=== PATIENT | male | born 1955 | race Caucasian/White ===

== ENCOUNTER 2020-04-22 11:53 | Emergency (ER) | payer OTHER ==
[~2020-04-22] VITALS: Ht 180.3 cm; Wt 86.2 kg
[2020-04-22 12:31] VITALS: BP 137/62
[2020-04-22] MEDS ORDERED: KETOROLAC TROMETH 60MG/2ML VIAL IM ONE (13:00)
== END 2020-04-22 13:34 | disposition home or self-care (01) ==
LOC: ER 11:53
DX: M51.16 Intervertebral disc disorders with radiculopathy, lumbar region (principal)
CPT/HCPCS: 96372; 99283; J1885

== ENCOUNTER 2021-12-30 15:32 | Emergency (ER) | payer MEDICARE, OTHER ==
[~2021-12-30] VITALS: Ht 180.3 cm; Wt 95.3 kg
[2021-12-30] MEDS ORDERED: SODIUM CHLORIDE 0.9% 2,850 ML IV ONE (16:00)
[2021-12-30 16:36] LABS: Albumin 3.6 g/dL (3.4-5.0); Anion Gap 10 (5-15); Blood Urea Nitrogen 22 mg/dL (7-18); Calcium 9.1 mg/dL (8.5-10.1); Carbon Dioxide 25 mmol/L (21-32); Chloride 100 mmol/L (98-107); Glucose 109 mg/dL (74-106); Magnesium 2.2 mg/dL (1.6-2.6); Potassium 4.2 mmol/L (3.5-5.1); Sodium 135 mmol/L (136-145)
[2021-12-30 16:37] LABS: Basophils # (auto) 0 10 ^3/uL (0-0.2); Basophils % (auto) 0.3 % (0.0-2.0); Eosinophils # (auto) 0 10 ^3/uL (0-0.8); Hematocrit 34.9 % (41.0-53.0); Hemoglobin 11.6 g/dL (13.5-17.5); INR 1.02 (0.9-1.15); Lactic Acid w/Reflex 2.1 mmol/L (0.4-2.0); Lymphocytes # (auto) 0.4 10 ^3/uL (0.4-5.4); Lymphocytes % (auto) 2.3 % (10.0-50.0); Mean Corpuscular Hemoglobin 27.9 pg (28.0-32.0); Mean Corpuscular Hgb Conc. 33.2 g/dL (32.0-36.0); Mean Corpuscular Volume 84.1 fL (80.0-100.0); Monocytes # (auto) 1.4 10 ^3/uL (0-1.3); Neutrophils # (auto) 13.4 10 ^3/uL (1.6-8.6); Neutrophils % (auto) 88.4 % (37.0-80.0); Partial Thromboplastin Time 25.4 sec (23.6-33.0); Red Blood Cells 4.15 10^6/uL (4.5-5.90); Red Cell Distribution Width 13.8 % (11.8-14.3); White Blood Cell 15.1 10^3/uL (4.4-10.8)
[2021-12-30 16:40] LABS: Alanine Aminotransferase 26 U/L (16-61); Alkaline Phosphatase 57 U/L (45-117); Aspartate Aminotransferase 33 U/L (15-37); Bilirubin, Total 0.5 mg/dL (0.2-1.0); GFR African American 78 mL/min; GFR Non-African American 64 mL/min; Total Protein 7.2 g/dL (6.4-8.2)
[2021-12-30 16:50] LABS: BUN/Creatinine Ratio 18.3
[2021-12-30] MEDS ORDERED: cefTRIAXone 1GM/50ML D5W 50 ML IV ONE (17:00)
[2021-12-30 17:39] LABS: Urine Bacteria NONE SEEN /hpf (None Seen); Urine Blood Negative /uL (Negative); Urine Mucus FEW (None Seen); Urine Specific Gravity 1.009 (1.001-1.035); Urine WBC <1 /hpf (0 - 3)
[2021-12-30] MEDS ORDERED: CLINDAMYCIN 300MG IV 50 ML IV ONE (17:45)
[2021-12-30 18:55] VITALS: BP 98/47
== END 2021-12-30 19:04 | disposition left against medical advice (07) ==
LOC: ER 15:32
DX: A41.9 Sepsis, unspecified organism (principal); M87.9 Osteonecrosis, unspecified; S76.912A Strain of unspecified muscles, fascia and tendons at thigh level, left thigh, initial encounter; X58.XXXA Exposure to other specified factors, initial encounter; I10 Essential (primary) hypertension; Z88.0 Allergy status to penicillin; Z88.1 Allergy status to other antibiotic agents; Y93.89 Activity, other specified; Y92.89 Other specified places as the place of occurrence of the external cause; Y99.8 Other external cause status
CPT/HCPCS: 36415; 71045; 73700; 80053; 81001; 83605; 83735; 84484; 85025; 85610; 85730; 87040; 93005; 96361; 96365; 96368; 99285; J0696; J3490; J7030

== ENCOUNTER 2025-03-14 08:37 | Inpatient (IN) | payer BC, MEDICARE ==
[~2025-03-14] VITALS: Ht 180.3 cm; Wt 80.0 kg
--- NOTE | 2025-03-14 09:04 | ED.PDOC ---
General HPI Comments This is a 70 year old male BIBA presenting to the ED with chief complaint of hematuria and inability to void. Patient reports that he has history of bladder cancer and he is currently following up with urology and oncology or treatment. Patient relays that he started to experience hematuria yesterday, however, soon after he was then unable to void and has not voided since onset. Patient states his abdomen is now distended due to all the fluid. Patient notes he went to [place] earlier, but was transferred here for treatment. Patient denies any dysuria, fever, chills, chest pain, SOB, or N/V/D. Chief Complaint: Urinary Time Seen by MD: 08:57 Reviewed notes: Nurses Notes, Aircraft Maintenance Engineer Notes, Medications, Allergies Allergies: Coded Allergies: Penicillins (Verified Allergy, Unknown, 12/30/21) Salicylates (Verified Allergy, Unknown, 12/30/21) Information Source: Patient, Emergency Med Personnel Mode of Arrival: EMS Severity: Moderate Inability to void: Complete Timing: Days Duration: Since onset Prehospital treatment: None Onset: Spontaneous Symptoms: Hematuria, Inability to void History of: Other (Bladder cancer) Location: Suprapubic Penile discharge: None Modifying factors: None associated signs and symptoms: Hematuria, Inability to Void Past Medical History PAST MEDICAL HISTORY: Cancer (Bladder cancer), HTN Surgical History: Denies all surgeries Family History Family History: Reviewed,noncontributory to illness Social History Smoker: Non-Smoker Alcohol: Denies ETOH Use Drugs: Denies Drug Use Lives In: Home Constitutional: denies: chills, diaphoresis, fatigue, fever, malaise, sweats, weakness, others EENTM: denies: blurred vision, double vision, ear bleeding, ear discharge, ear drainage, ear pain, ear ringing, eye pain, eye redness, hearing loss, mouth pain, mouth swelling, nasal discharge, nose bleeding, nose congestion, nose pain, photophobia, tearing, throat pain, throat swelling, voice changes, others Respiratory: denies: cough, hemoptysis, orthopnea, SOB at rest, shortness of breath, SOB with excertion, stridor, wheezing, others Cardiovascular: denies: chest pain, dizzy spells, diaphoresis, Dyspnea on exertion, edema, irregular heart beat, left arm pain, lightheadedness, palpitati ons, PND, syncope, others Gastrointestinal: reports: abdomen distended; denies: abdominal pain, blood streaked bowels, constipated, diarrhea, dysphagia, difficulty swallowing, hematemesis, melena, nausea, poor appetite, poor fluid intake, rectal bleeding, rectal pain, vomiting, others Genitourinary: reports: hematuria, others (Inability to void); denies: burning, dysuria, flank pain, frequency, incontinence, penile discharge, penile sore, pain, testicle pain, testicle swelling, urgency Neurological: denies: dizziness, fainting, headache, left sided numbness, left sided weakness, numbness, paresthesia, pre-existing deficit, right sided numbness, right sided weakness, seizure, speech problems, tingling, tremors, weakness, others Musculoskeletal: denies: back pain, gout, joint pain, joint swelling, muscle pain, muscle stiffness, neck pain, others Integumetry: denies: bruises, change in color, change in hair/nails, dryness, laceration, lesions, lumps, rash, wounds, others Allergic/Immunocompromised: denies: Difficulty Healing, Frequent Infections, Hives, Itching, others Hematologic/Lymphatic: denies: anemia, blood clots, easy bleeding, easy bruising, swollen glands, others Endocrine: denies: excessive hunger, excessive sweating, excessive thirst, excessive urination, flushing, intolerance to cold, intolerance to heat, unexplained weight gain, unexplained weight loss, others Psychiatric: denies: anxiety, bipolar disorder, depression, hopeless, panic disorder, schizophrenia, sleepless, suicidal, others All Other Systems: Reviewed and Negative Physical Exam General Appearance: No Apparent Distress, Normal HEENT: Normal ENT Inspection, Pharynx Normal, TMs Normal Neck: Full Range of Motion, Non-Tender, Normal, Normal Inspection Respiratory: Chest Non-Tender, Lungs Clear, No Accessory Muscle Use, No Respiratory Distress, Normal Breath Sounds Cardiovascular: No Edema, No JVD, No Murmur, No Gallop, Normal Peripheral Pulses, Regular Rate/Rhythm Breast Exam: Deferred Gastrointestinal: Distended, No Organomegaly, Non Tender, No Pulsatile Mass, Normal Bowel Sounds, Soft Genitalia: Deferred Pelvic: Deferred Rectal: Deferred Extremities: No calf tenderness, Normal capillary refill, Normal inspection, Normal range of motion, Non-tender, No pedal edema Musculoskeletal : Apperance: Normal Neurologic: Alert, shuttle buggy operator II-XII nml as Tested, No Motor Deficits, Normal Affect, Normal Mood, No Sensory Deficits Cerebellar Function: Normal Reflexes: Normal Skin: Dry, Normal Color, Warm Lymphatic: No Adenopathy Was a procedure done? Was a procedure done?: No Differential Diagnosis Kidney stone (Female): N/A Kidney stone (Male): N/A Penile/Scrotal: N/A Urinary Problem (Male): Urinary Retention Urinary Problem (Female): N/A X-Ray, Labs, Meds, VS Vital Signs Date Time Temp Pulse Resp B/P (MAP) Pulse Ox O2 Delivery O2 Flow Rate FiO2 03/14/25 10:01 98.6 69 14 117/60 (79) 95 98.6 03/14/25 10:01 69 20 95 Room Air* 0 21 03/14/25 09:48 97.9 68 16 127/53 (77) 96 97.9 03/14/25 08:50 97.8 70 14 132/101 (111) 91 97.8 Lab Test 03/14/25 09:32 03/14/25 09:24 Range/Units Urine Color Red H Yellow Urine Clarity Ex.turbid Clear Urine pH 5.5 5.0-9.0 Urine Specific [place] 1.013 1.001-1.035 Urine Protein 1+ H Negative Urine Ketones Negative Negative Urine Blood 3+ H Negative /uL Urine Nitrite Negative Negative Urine Bilirubin Negative Negative Urine Urobilinogen Normal Negative mg/dL Urine Leukocyte Esterase 3+ Negative /uL Urine RBC 6219 0 - 3 /hpf Urine Microscopic WBC 827 H 0-3 /HPF Urine Squamous Epithelial Cells None seen <5 /hpf Urine Bacteria None seen None Seen /hpf Urine Mucus Few None Seen Urine Glucose Normal Normal mg/dL White Blood Count 7.5 4.4-10.8 10^3/uL Red Blood Count 4.82 4.5-5.90 10^6/uL Hemoglobin 12.4 L 13.5-17.5 g/dL Hematocrit 38.3 L 41.0-53.0 % Mean Corpuscular Volume 79.4 L 80.0-100.0 fL Mean Corpuscular Hemoglobin 25.7 L 28.0-32.0 pg Mean Corpuscular Hemoglobin Concent 32.4 32.0-36.0 g/dL Red Cell Distribution Width 15.3 H 11.8-14.3 % Platelet Count 213 140-450 10^3/uL Mean Platelet Volume 7.4 6.9-10.8 fL Neutrophils (%) (Auto) 74.2 37.0-80.0 % Lymphocytes (%) (Auto) 10.8 10.0-50.0 % Monocytes (%) (Auto) 14.1 H 0.0-12.0 % Eosinophils (%) (Auto) 0.3 0.0-7.0 % Basophils (%) (Auto) 0.6 0.0-2.0 % Neutrophils # (Auto) 5.5 1.6-8.6 10 ^3/uL Lymphocytes # (Auto) 0.8 0.4-5.4 10 ^3/uL Monocytes # (Auto) 1.0 0-1.3 10 ^3/uL Eosinophils # (Auto) 0 0-0.8 10 ^3/uL Basophils # (Auto) 0 0-0.2 10 ^3/uL Nucleated Red Blood Cells 0.1 % Sodium Level 140 136-145 mmol/L Potassium Level 4.7 3.5-5.1 mmol/L Chloride Level 105 98-107 mmol/L Carbon Dioxide Level 26 20-31 mmol/L Anion Gap 9 5-15 Blood Urea Nitrogen 15 9-23 mg/dL Creatinine 0.92 0.700-1.30 mg/dL Glomerular Filtration Rate Calc 89 >90 mL/min BUN/Creatinine Ratio 16.3 10.0-20.0 Serum Glucose 114 H 74-106 mg/dL Calcium Level 10.4 8.7-10.4 mg/dL Time of 1ST Reevaluation: 09:57 Reevaluation 1ST: Improved Patient Education/Counseling: Diagnosis, Treatment Family Education/Counseling: No Family Present Additional Information Previous visits reviewed: 12/30/21 for sepsis The following tests were ordered, and results were reviewed by me: CBC, BMP, UA Additional Information was gathered from interviewing the following independent historians: EMS I reviewed and agreed with the following test results read by other providers: None I discussed treatment and results with medical personnel and: patient Comprehensive systems review obtained and negative except for what is stated in the HPI. SEPSIS Sepsis Screen Vital Signs Date Time Temp Pulse Resp B/P (MAP) Pulse Ox O2 Delivery O2 Flow Rate FiO2 6/20/25 10:01 98.6 69 14 117/60 (79) 95 98.6 03/14/25 10:01 69 20 95 Room Air* 0 21 03/14/25 09:48 97.9 68 16 127/53 (77) 96 97.9 03/14/25 08:50 97.8 70 14 132/101 (111) 91 97.8 Laboratory Tests Test 03/14/25 09:24 White Blood Count 7.5 10^3/uL (4.4-10.8) Departure 1 Departure Time of Disposition: 10:58 (Patient presented has a transfer from outside hospital with the acute urinary retention likely secondary to hematuria clots.) Impression: Primary Impression: Hematuria Qualified Codes: R31.0 - Gross hematuria Additional Impression: Acute urinary retention Disposition: ADMITTED INPATIENT Admit to: Med Surg Condition: Serious Critical Care Note Critical Care Time?: No Stability Stability form required: No Heart Score Heart Score: Heart Score Response (Comments) Value History N/A 0 EKG N/A 0 Age N/A 0 Risk Factors N/A 0 Troponin N/A 0 Total 0 I personally scribed for JOE TORRES MD ([email or web address]) on 03/14/25 at 09:04. Electronically submitted by Kareem Li ([email or web address]). JOE TORRES MD Mar 14, 2025 09:04
[2025-03-14 09:40] LABS: Urine Bacteria None Seen /hpf (None Seen)
[2025-03-14 09:41] LABS: Basophils # (auto) 0 10 ^3/uL (0-0.2); Basophils % (auto) 0.6 % (0.0-2.0); Eosinophils # (auto) 0 10 ^3/uL (0-0.8); Eosinophils % (auto) 0.3 % (0.0-7.0); Hematocrit 38.3 % (41.0-53.0); Hemoglobin 12.4 g/dL (13.5-17.5); Lymphocytes # (auto) 0.8 10 ^3/uL (0.4-5.4); Lymphocytes % (auto) 10.8 % (10.0-50.0); Mean Corpuscular Hemoglobin 25.7 pg (28.0-32.0); Mean Corpuscular Hgb Conc. 32.4 g/dL (32.0-36.0); Mean Corpuscular Volume 79.4 fL (80.0-100.0); Monocytes % (auto) 14.1 % (0.0-12.0); Neutrophils # (auto) 5.5 10 ^3/uL (1.6-8.6); Neutrophils % (auto) 74.2 % (37.0-80.0); Nucleated Red Blood Cells % 0.1 %; Platelet Count (auto) 213 10^3/uL (140-450); Red Blood Cells 4.82 10^6/uL (4.5-5.90); Red Cell Distribution Width 15.3 % (11.8-14.3); White Blood Cell 7.5 10^3/uL (4.4-10.8)
[2025-03-14 09:49] LABS: Chloride 105 mmol/L (98-107); Potassium 4.7 mmol/L (3.5-5.1); Sodium 140 mmol/L (136-145)
[2025-03-14 09:50] LABS: Anion Gap 9 (5-15); Carbon Dioxide 26 mmol/L (20-31)
[2025-03-14 09:51] LABS: Calcium 10.4 mg/dL (8.7-10.4)
[2025-03-14 09:55] LABS: BUN/Creatinine Ratio 16.3 (10.0-20.0); Blood Urea Nitrogen 15 mg/dL (9-23)
[2025-03-14 09:56] LABS: Glucose 114 mg/dL (74-106)
[2025-03-14 10:01] VITALS: PULSE 69; RESP 20; O2SAT 95
[2025-03-14 10:27] LABS: Urine Blood 3+ /uL (Negative); Urine Clarity Ex.Turbid (Clear); Urine Color Red (Yellow); Urine Mucus FEW (None Seen); Urine Protein, UAD 1+ (Negative); Urine Specific Gravity 1.013 (1.001-1.035); Urine Squamous Epithelial Cell None Seen /hpf (<5); Urine Urobilinogen Normal (Negative); Urine WBC 827 /HPF (0-3); Urine pH 5.5 (5.0-9.0)
[2025-03-14] MEDS ORDERED: SIMV40TA18 PO (12:39)
[2025-03-14] MEDS ORDERED: LOSA-534 PO (12:39)
--- NOTE | 2025-03-14 12:41 | DVHHP2 ---
History of Present Illness Reason for Visit: Hematuria History of Present Illness James Colon is a 70-year-old male with past medical history of hypertension, COPD, bladder cancer, hernia repair, bladder scrapes, bilateral leg stents at [facility] in 2020, and left eye foreign body removal who presents to the ED with hematuri that started yesterday. Patient reports that he was showering then suddenly stated that he was bleeding when he was voiding. Patient reports that he was seen at [facility] and transferred over here for evaluation. Patient also reports that he has an established urologist in [place] as well as an established oncologist in [place]. Patient denies any chest pain, shortness of breath, fever, chills, lightheadedness, weakness, dizziness, recent trauma or injury, recent sick contacts, recent ingestion of spoiled food, recent travels, abdominal pain, nausea, vomiting, or diarrhea. Patient reports that he ambulates without any DMEs. Cardiovascular: HTN Pulmonary: COPD Past Medical History Bladder cancer Past Surgical History: Hernia Repair, Other (Bladder scrapes, bilateral leg addie nts in 2020 at [facility], and left eye foreign body removal) Family History: None Smoke: Quit ALCOHOL: none (Quit) Drugs: None Lives: with Family Domestic Violence: Neg Review of Systems Genitourinary: Hematuria Allergies: Coded Allergies: Penicillins (Verified Allergy, Unknown, 12/30/21) Salicylates (Verified Allergy, Unknown, 12/30/21) Medications Current Medications Medications Dose Ordered Sig/Catia Route Start Time Stop Time Status Last Admin Dose Admin Ondansetron HCl 4 mg Q4HP PRN IV 03/14/25 12:45 UNV Acetaminophen 650 mg Q6HP PRN PO 03/14/25 12:45 UNV Nitroglycerin 0.4 mg Q5MINP PRN SL 03/14/25 12:45 UNV Morphine Sulfate 2 mg Q30M PRN IV 03/14/25 12:45 UNV Losartan Potassium 50 mg DAILY PO 03/15/25 10:00 UNV Atorvastatin Calcium 40 mg HS PO 03/14/25 22:00 UNV Exam Vital Signs Vital Signs Date Time Temp Pulse Resp B/P (MAP) Pulse Ox O2 Delivery O2 Flow Rate FiO2 03/14/25 10:01 98.6 69 14 117/60 (79) 95 98.6 03/14/25 10:01 Room Air* 0 21 General Appearance: Alert, Oriented X3, Cooperative, No acute distress HEENT: Atraumatic, PERRLA, EOMI, Mucous membr. moist/pink Respiratory: Clear to auscultation, Normal air movement Cardiovascular: Regular rate, Normal S1, Normal S2 Abdominal: Normal bowel sounds, Soft Extremities: Normal pulses Neuro: Normal speech, Strength at 5/5 X4 ext, Normal tone, Sensation intact Psych/Mental Status: Mental status NL, Mood NL Labs/Xrays Labs Test 03/14/25 09:32 03/14/25 09:24 Range/Units Urine Color Red H Yellow Urine Clarity Ex.turbid Clear Urine pH 5.5 5.0-9.0 Urine Specific [place] 1.013 1.001-1.035 Urine Protein 1+ H Negative Urine Ketones Negative Negative Urine Blood 3+ H Negative /uL Urine Nitrite Negative Negative Urine Bilirubin Negative Negative Urine Urobilinogen Normal Negative mg/dL Urine Leukocyte Esterase 3+ Negative /uL Urine RBC 6219 0 - 3 /hpf Urine Microscopic WBC 827 H 0-3 /HPF Urine Squamous Epithelial Cells None seen <5 /hpf Urine Bacteria None seen None Seen /hpf Urine Mucus Few None Seen Urine Glucose Normal Normal mg/dL White Blood Count 7.5 4.4-10.8 10^3/uL Red Blood Count 4.82 4.5-5.90 10^6/uL Hemoglobin 12.4 L 13.5-17.5 g/dL Hematocrit 38.3 L 41.0-53.0 % Mean Corpuscular Volume 79.4 L 80.0-100.0 fL Mean Corpuscular Hemoglobin 25.7 L 28.0-32.0 pg Mean Corpuscular Hemoglobin Concent 32.4 32.0-36.0 g/dL Red Cell Distribution Width 15.3 H 11.8-14.3 % Platelet Count 213 140-450 10^3/uL Mean Platelet Volume 7.4 6.9-10.8 fL Neutrophils (%) (Auto) 74.2 37.0-80.0 % Lymphocytes (%) (Auto) 10.8 10.0-50.0 % Monocytes (%) (Auto) 14.1 H 0.0-12.0 % Eosinophils (%) (Auto) 0.3 0.0-7.0 % Basophils (%) (Auto) 0.6 0.0-2.0 % Neutrophils # (Auto) 5.5 1.6-8.6 10 ^3/uL Lymphocytes # (Auto) 0.8 0.4-5.4 10 ^3/uL Monocytes # (Auto) 1.0 0-1.3 10 ^3/uL Eosinophils # (Auto) 0 0-0.8 10 ^3/uL Basophils # (Auto) 0 0-0.2 10 ^3/uL Nucleated Red Blood Cells 0.1 % Sodium Level 140 136-145 mmol/L Potassium Level 4.7 3.5-5.1 mmol/L Chloride Level 105 98-107 mmol/L Carbon Dioxide Level 26 20-31 mmol/L Anion Gap 9 5-15 Blood Urea Nitrogen 15 9-23 mg/dL Creatinine 0.92 0.700-1.30 mg/dL Glomerular Filtration Rate Calc 89 >90 mL/min BUN/Creatinine Ratio 16.3 10.0-20.0 Serum Glucose 114 H 74-106 mg/dL Calcium Level 10.4 8.7-10.4 mg/dL Indication: UTI Technique: CT axial images of the abdomen and pelvis are obtained without contrast. Coronal and sagittal reformats were obtained. Radiation Dose Information: CTDI volume is 17.4 mGy. Dose-length product is 968.5 mGy*cm Comparison: None FINDINGS: There is limited interpretation of the abdomen and pelvis without administration of intravenous contrast. The lung bases demonstrate tiny bilateral pleural effusions. Bibasilar atelectasis. Adrenal glands, spleen pancreas unremarkable in shape. Liver capsule mildly nodular morphology. Small amount of perihepatic ascites fluid. Moderate to severe left and moderate right hydroureteronephrosis. Stomach is partially distended. Small bowel loops are normal in caliber. Colonic diverticular disease. Moderate volume stool in the colon. No secondary signs for appendicitis. Abdominal aortic atherosclerotic disease. Dilatation of the infrarenal abdominal aorta to 2.2 cm. Bladder partially decompressed by Walls catheter. Hyperdensity within the bladder, possibly bladder hematoma. Irregular thickening of the bladder wall up to 15 mm. Presacral edema. No inguinal lymphadenopathy. [id number] bilateral sacroiliac degenerative joint disease. Moderate thoracolumbar degenerative disc disease. Sclerotic changes of the bilateral femoral heads. Moderate thoracolumbar degenerative disc disease. There is moderate nodularity of the omentum most pronounced within the lower abdomen / pelvis. IMPRESSION: Moderate to severe left and moderate right hydroureteronephrosis secondary to the underlying bladder. Irregular bladder wall thickening up to 15 mm with hyperdensity/ hemorrhage in the bladder. Recommend urology consultation to evaluate for bladder neoplasm, hemorrhagic cystitis and other etiologies. Lower abdominal and pelvic omental nodularity, concerning for omental caking / metastases. Recommend oncology consultation to further evaluate. Liver capsule nodular morphology could represent cirrhosis. Small amount of perihepatic ascites. Tiny bilateral pleural effusions. Extensive atherosclerotic disease. 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 Other findings as described. 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 - patient has bilateral leg stents that were placed in 2020 at [facility] by vascular Acute hypoxic respiratory failure History of hypertension History of COPD History of bladder cancer History of bladder scrapes History of hernia repair History of left eye foreign body removal Plan Admit to [facility] Walls catheter IV antibiotics-ceftriaxone Duo nebs UA CT abdomen and pelvis T bili ordered LFTs Lipase Antiemetics Pain management Supportive oxygen Kidney ultrasound Diet Home medications reconciled DVT prophylaxis-SCDs PUD prophylaxis-not indicated history of GERD or GI bleed Discussed plan of care with patient and nurse [facility] consult if LFTs or T bili abnormal Hold anti coags due to bleeding Plan discussed with: Patient My Orders Orders - REGULO NOLAND VP LAB Procedure Category Date Status Time Admit ADMIT 03/14/25 Transmitted 12:37 Allergies QUIN 03/14/25 In Process 12:37 Code Status CODE 03/14/25 Transmitted 12:37 Ondansetron Hcl PHA 03/14/25 Logged (Zofran) 12:45 Complete Blood Count LAB 03/15/25 Verified 04:00 Comprehensive LAB 03/15/25 Verified Metabolic Panel 04:00 Cardiac DIET 03/14/25 Transmitted Diet-2gna,Lofat,Lochol Lunch Acetaminophen Tablet PHA 03/14/25 Logged (Tylenol Tablet) 12:45 Sequential QUIN 03/14/25 In Process Compression Device Nitroglycerin PHA 03/14/25 Logged Sublingual (Ntrostat 12:45 Morphine Sulfate PHA 03/14/25 Logged Injection 12:45 Stat Ekg For Chest [facility] 03/14/25 In Process Pain 12:37 Notify Md Of Changes [facility] 03/14/25 In Process From Base 12:37 Decator Operator For [facility] 03/14/25 In Process 24 Hours 12:37 Emergency Dysrhythmia [facility] 03/14/25 In Process Protocol 12:37 Rhythm Strips Once [facility] 03/14/25 In Process Every Shift 12:37 Oxygen By Nasal RT 03/14/25 Transmitted Cannula 12:37 Losartan Tablet PHA 03/15/25 Transmitted (Cozaar Tablet) 10:00 Atorvastatin (Lipitor) PHA 03/14/25 Transmitted 22:00 Albuterol Medneb PHA 03/14/25 Transmitted (Ventolin Medneb) 12:45 Ipratropium Medneb PHA 03/14/25 Transmitted (Atrovent Medneb) 12:45 Date of Service: Mar 14, 2025 Billing Provider: REGULO NOLAND Common Visit Codes: [id number] INP/OBS CARE (HIGH) REGULO NOLAND Mar 14, 2025 12:41
[2025-03-14] MEDS ORDERED: NITROGLYCERIN 0.4 MG SL TAB SL PRN (12:45)
[2025-03-14] MEDS ORDERED: ALBUTEROL SULF 2.5 MG/0.5ML(0.5%) NEB SOLN NEB PRN (12:45)
[2025-03-14] MEDS ORDERED: MORPHINE SULFATE INJ 2 MG/ml SYRG IV PRN (12:45)
[2025-03-14] MEDS ORDERED: IPRATROPIUM BROM 0.5 MG/2.5ML INH SOL NEB PRN (12:45)
[2025-03-14 14:06] VITALS: BP 126/60; PULSE 78; RESP 17; TEMP 98.6; O2SAT 91
--- NOTE | 2025-03-14 14:21 | DVH ---
Indication: UTI Technique: CT axial images of the abdomen and pelvis are obtained without contrast. Coronal and sagit rell reformats were obtained. Radiation Dose Information: CTDI volume is 17.4 mGy. Dose-length product is 968.5 mGy*cm Comparison: None FINDINGS: There is limited interpretation of the abdomen and pelvis without administration of intravenous contr ast. The lung bases demonstrate tiny bilateral pleural effusions. Bibasilar atelectasis. Adrenal glands, spleen pancreas unremarkable in shape. Liver capsule mildly nodular morphology. Smal l amount of perihepatic ascites fluid. Moderate to severe left and moderate right hydroureteronephrosis. Stomach is partially distended. Small bowel loops are normal in caliber. Colonic diverticular disease. Moderate volume stool in the colon. No secondary signs for appendicitis . Abdominal aortic atherosclerotic disease. Dilatation of the infrarenal abdominal aorta to 2.2 cm. Farzad dder partially decompressed by Walls catheter. Hyperdensity within the bladder, possibly bladder caprice miguel ángel. Irregular thickening of the bladder wall up to 15 mm. Presacral edema. No inguinal lymphadenop athy. [id number] bilateral sacroiliac degenerative joint disease. Moderate thoracolumbar degenerative disc disease. Sclerotic changes of the bilateral femoral heads. Moderate thoracolumbar degenerative disc disease. There is moderate nodularity of the omentum most pronounced within the lower abdomen / pelvis. IMPRESSION: Moderate to severe left and moderate right hydroureteronephrosis secondary to the underlying bladder. Irregular bladder wall thickening up to 15 mm with hyperdensity/ hemorrhage in the bladder. Recommen d urology consultation to evaluate for bladder neoplasm, hemorrhagic cystitis and other etiologies. Lower abdominal and pelvic omental nodularity, concerning for omental caking / metastases. Recommend oncology consultation to further evaluate. Liver capsule nodular morphology could represent cirrhosis. Small amount of perihepatic ascites. Tiny bilateral pleural effusions. Extensive atherosclerotic disease. 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 Other findings as described.
[2025-03-14] MEDS: MORPHINE SULFATE INJ 2 MG/ml SYRG IV PRN (14:23)
[2025-03-14] MEDS: cefTRIAXone 1GM/50ML D5W 50 ML IV SCH (15:24)
[2025-03-14] MEDS: HYDROcodone-ACET 5/325MG TAB PO PRN (16:19)
[2025-03-14 17:40] VITALS: BP 114/57; PULSE 68; RESP 18; TEMP 98; O2SAT 96
--- NOTE | 2025-03-14 17:47 | DVHINCON2 ---
Date of service: Mar 14, 2025 Referring Physician Hospitalist Reason for Consultation Gross hematuria Urinary retention Walls in place History of Present Illness 70 year old male ANA presenting to the ED with chief complaint of hematuria and inability to void. Patient reports that he has history of bladder cancer and he is currently following up with urology and oncology or treatment. Patient relays that he started to experience hematuria yesterday, however, soon after he was then unable to void and has not voided since onset. Patient states his abdomen is now distended due to all the fluid. Patient notes he went to [facility] earlier, but was transferred here for treatment. Patient denies any dysuria, fever, chills, chest pain, SOB, or N/V/D. Chief Complaint: Urinary Reviewed notes: Nurses Notes, Circus Trainer Notes, Medications, Allergies Allergies: Coded Allergies: Penicillins (Verified Allergy, Unknown, 12/30/21) Salicylates (Verified Allergy, Unknown, 12/30/21) Information Source: Patient, Emergency Med Personnel Mode of Arrival: EMS Severity: Moderate Inability to void: Complete Timing: Days Duration: Since onset Prehospital treatment: None Onset: Spontaneous Symptoms: Hematuria, Inability to void History of: Other (Bladder cancer) Location: Suprapubic Penile discharge: None Modifying factors: None associated signs and symptoms: Hematuria, Inability to Void Past Medical History Cancer (Bladder cancer), HTN Past Surgical History TURBT Allergies: Coded Allergies: Penicillins (Verified Allergy, Unknown, 12/30/21) Salicylates (Verified Allergy, Unknown, 12/30/21) Home Meds Reported Medications Losartan Potassium (Losartan Potassium) 50 Mg Tab, 1 TAB PO DAILY 03/14/25 Simvastatin (Simvastatin) 40 Mg Tab, 1 TAB PO 03/14/25 Current Medications Current Medications Medications (Trade) Dose Ordered Sig/Catia Route PRN Reason Start Time Stop Time Status Last Admin Ondansetron HCl (Zofran) 4 mg Q4HP PRN IV NAUSEA / VOMITING 03/14/25 12:45 Acetaminophen (Tylenol Tablet) 650 mg Q6HP PRN PO PAIN SCALE 1-3 OR TEMP>100.4 03/14/25 12:45 Nitroglycerin (Ntrostat Sublingual) 0.4 mg Q5MINP PRN SL FOR CHEST PAIN 03/14/25 12:45 Morphine Sulfate 2 mg Q30M PRN IV FOR CHEST PAIN 03/14/25 12:45 Losartan Potassium (Cozaar Tablet) 50 mg DAILY PO 03/15/25 10:00 Atorvastatin Calcium (Lipitor) 20 mg HS PO 03/14/25 22:00 Albuterol (Ventolin Medneb) 2.5 mg Q4HPRN PRN NEB SHORTNESS OF BREATH 03/14/25 12:45 Ipratropium [place] (Atrovent Medneb) 0.5 mg Q4HPRN PRN NEB SHORTNESS OF BREATH 03/14/25 12:45 Ceftriaxone Sodium 50 ml @ 100 mls/hr DAILY@09 IV 03/14/25 12:45 03/14/25 15:24 Acetaminophen/ Hydrocodone Bitart ([place] 5/325MG Tab) 1 tab Q6HPRN PRN PO MODERATE PAIN (4-6 PAIN SCALE) 03/14/25 14:00 03/14/25 16:19 Morphine Sulfate 1 mg Q6HP PRN IV SEVERE PAIN (7-10 PAIN SCALE) 03/14/25 14:00 03/14/25 14:23 Sodium Chloride 1,000 ml @ 100 mls/hr Q10H IV 03/14/25 17:30 UNV Review of Systems Constitutional: denies: chills, diaphoresis, fatigue, fever, malaise, sweats, weakness, others EENTM: denies: blurred vision, double vision, ear bleeding, ear discharge, ear drainage, ear pain, ear ringing, eye pain, eye redness, hearing loss, mouth pain, mouth swelling, nasal discharge, nose bleeding, nose congestion, nose pain, photophobia, tearing, throat pain, throat swelling, voice changes, others Respiratory: denies: cough, hemoptysis, orthopnea, SOB at rest, shortness of breath, SOB with excertion, stridor, wheezing, others Cardiovascular: denies: chest pain, dizzy spells, diaphoresis, Dyspnea on exertion, edema, irregular heart beat, left arm pain, lightheadedness, palpitations, PND, syncope, others Gastrointestinal: reports: abdomen distended; denies: abdominal pain, blood streaked bowels, constipated, diarrhea, dysphagia, difficulty swallowing, hematemesis, melena, nausea, poor appetite, poor fluid intake, rectal bleeding, rectal pain, vomiting, others Genitourinary: reports: hematuria, others (Inability to void); denies: burning, dysuria, flank pain, frequency, incontinence, penile discharge, penile sore, pain, testicle pain, testicle swelling, urgency Neurological: denies: dizziness, fainting, headache, left sided numbness, left sided weakness, numbness, paresthesia, pre-existing deficit, right sided numbness, right sided weakness, seizure, speech problems, tingling, tremors, weakness, others Musculoskeletal: denies: back pain, gout, joint pain, joint swelling, muscle pain, muscle stiffness, neck pain, others Integumetry: denies: bruises, change in color, change in hair/nails, dryness, laceration, lesions, lumps, rash, wounds, others Allergic/Immunocompromised: denies: Difficulty Healing, Frequent Infections, Hives, Itching, others Hematologic/Lymphatic: denies: anemia, blood clots, easy bleeding, easy bruising, swollen glands, others Endocrine: denies: excessive hunger, excessive sweating, excessive thirst, excessive urination, flushing, intolerance to cold, intolerance to heat, unexplained weight gain, unexplained weight loss, others Psychiatric: denies: anxiety, bipolar disorder, depression, hopeless, panic disorder, schizophrenia, sleepless, suicidal, others All Other Systems: Reviewed and Negative Vital Signs Vital Signs Date Time Temp Pulse Resp B/P (MAP) Pulse Ox O2 Delivery O2 Flow Rate FiO2 03/14/25 16:00 63 12 107/68 (81) 95 03/14/25 14:06 98.6 0.0 21 98.6 03/14/25 10:01 Room Air* Physical Exam General Appearance Physical Exam General Appearance: No Apparent Distress, Normal HEENT: Normal ENT Inspection, Pharynx Normal, TMs Normal Neck: Full Range of Motion, Non-Tender, Normal, Normal Inspection Respiratory: Chest Non-Tender, Lungs Clear, No Accessory Muscle Use, No Respiratory Distress, Normal Breath Sounds Cardiovascular: No Edema, No JVD, No Murmur, No Gallop, Normal Peripheral Pulses, Regular Rate/Rhythm Breast Exam: Deferred Gastrointestinal: Distended, No Organomegaly, Non Tender, No Pulsatile Mass, Normal Bowel Sounds, Soft Genitalia: Walls in place Extremities: No calf tenderness, Normal capillary refill, Normal inspection, Normal range of motion, Non-tender, No pedal edema Musculoskeletal : Apperance: Normal Neurologic: Alert, photographer news II-XII nml as Tested, No Motor Deficits, Normal Affect, Normal Mood, No Sensory Deficits Cerebellar Function: Normal Reflexes: Normal Skin: Dry, Normal Color, Warm Lymphatic: No Adenopathy Labs/Diagnostic Data Labs Test 03/14/25 09:32 03/14/25 09:24 Range/Units Urine Color Red H Yellow Urine Clarity Ex.turbid Clear Urine pH 5.5 5.0-9.0 Urine Specific [place] 1.013 1.001-1.035 Urine Protein 1+ H Negative Urine Ketones Negative Negative Urine Blood 3+ H Negative /uL Urine Nitrite Negative Negative Urine Bilirubin Negative Negative Urine Urobilinogen Normal Negative mg/dL Urine Leukocyte Esterase 3+ Negative /uL Urine RBC 6219 0 - 3 /hpf Urine Microscopic WBC 827 H 0-3 /HPF Urine Squamous Epithelial Cells None seen <5 /hpf Urine Bacteria None seen None Seen /hpf Urine Mucus Few None Seen Urine Glucose Normal Normal mg/dL White Blood Count 7.5 4.4-10.8 10^3/uL Red Blood Count 4.82 4.5-5.90 10^6/uL Hemoglobin 12.4 L 13.5-17.5 g/dL Hematocrit 38.3 L 41.0-53.0 % Mean Corpuscular Volume 79.4 L 80.0-100.0 fL Mean Corpuscular Hemoglobin 25.7 L 28.0-32.0 pg Mean Corpuscular Hemoglobin Concent 32.4 32.0-36.0 g/dL Red Cell Distribution Width 15.3 H 11.8-14.3 % Platelet Count 213 140-450 10^3/uL Mean Platelet Volume 7.4 6.9-10.8 fL Neutrophils (%) (Auto) 74.2 37.0-80.0 % Lymphocytes (%) (Auto) 10.8 10.0-50.0 % Monocytes (%) (Auto) 14.1 H 0.0-12.0 % Eosinophils (%) (Auto) 0.3 0.0-7.0 % Basophils (%) (Auto) 0.6 0.0-2.0 % Neutrophils # (Auto) 5.5 1.6-8.6 10 ^3/uL Lymphocytes # (Auto) 0.8 0.4-5.4 10 ^3/uL Monocytes # (Auto) 1.0 0-1.3 10 ^3/uL Eosinophils # (Auto) 0 0-0.8 10 ^3/uL Basophils # (Auto) 0 0-0.2 10 ^3/uL Nucleated Red Blood Cells 0.1 % Sodium Level 140 136-145 mmol/L Potassium Level 4.7 3.5-5.1 mmol/L Chloride Level 105 98-107 mmol/L Carbon Dioxide Level 26 20-31 mmol/L Anion Gap 9 5-15 Blood Urea Nitrogen 15 9-23 mg/dL Creatinine 0.92 0.700-1.30 mg/dL Glomerular Filtration Rate Calc 89 >90 mL/min BUN/Creatinine Ratio 16.3 10.0-20.0 Serum Glucose 114 H 74-106 mg/dL Calcium Level 10.4 8.7-10.4 mg/dL PATIENT: DIANA CISNEROS GLENACCT: [id number] UNIT: [id number] : 1955 LOC: OVERFLOW ROOM / BED: [address] [place] [address] / AGE / SEX: 70 / M ADM STATUS: ADM IN SERVICE 1303 ORDERING PHYSICIAN: LATHA JAMES MD PROCEDURE(s): ABPL - CT AB PEL WO CON-NO ORAL OR IV REASON: UTI ORDER NUMBER(s): [id number], ACCESSION NUMBER(s): [id number] Indication: UTI Technique: CT axial images of the abdomen and pelvis are obtained without contrast. Coronal and sagittal reformats were obtained. Radiation Dose Information: CTDI volume is 17.4 mGy. Dose-length product is 968.5 mGy*cm Comparison: None FINDINGS: There is limited interpretation of the abdomen and pelvis without administration of intravenous contrast. The lung bases demonstrate tiny bilateral pleural effusions. Bibasilar atelectasis. Adrenal glands, spleen pancreas unremarkable in shape. Liver capsule mildly nodular morphology. Small amount of perihepatic ascites fluid. Moderate to severe left and moderate right hydroureteronephrosis. Stomach is partially distended. Small bowel loops are normal in caliber. Colonic diverticular disease. Moderate volume stool in the colon. No secondary signs for appendicitis. Abdominal aortic atherosclerotic disease. Dilatation of the infrarenal abdominal aorta to 2.2 cm. Bladder partially decompressed by Walls catheter. Hyperdensity within the bladder, possibly bladder hematoma. Irregular thickening of the bladder wall up to 15 mm. Presacral edema. No inguinal lymphadenopathy. [id number] bilateral sacroiliac degenerative joint disease. Moderate thoracolumbar degenerative disc disease. Sclerotic changes of the bilateral femoral heads. Moderate thoracolumbar degenerative disc disease. There is moderate nodularity of the omentum most pronounced within the lower abdomen / pelvis. IMPRESSION: Moderate to severe left and moderate right hydroureteronephrosis secondary to the underlying bladder. Irregular bladder wall thickening up to 15 mm with hyperdensity/ hemorrhage in the bladder. Recommend urology consultation to evaluate for bladder neoplasm, hemorrhagic cystitis and other etiologies. Lower abdominal and pelvic omental nodularity, concerning for omental caking / metastases. Recommend oncology consultation to further evaluate. Liver capsule nodular morphology could represent cirrhosis. Small amount of perihepatic ascites. Tiny bilateral pleural effusions. Extensive atherosclerotic disease. 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 Other findings as described. ATED BY: VJ SILVER MD DICTATED DATE/TIME: 03/14/251418 SIGNED BY: VJ SILVER MD SIGNED DATE/TIME: 03/14/25 141 CC: Assessment Gross hematuria History of bladder cancer Bilateral hydronephrosis, moderate/severe Normal renal function Plan/Recommendation Continue with Walls If clot retention, may change to 3 way for CBI CT Scan AP/NC Cystoscopy with possible TURBT next week (Monday, pending OR time) Plan discussed with: Patient, Other GERALDINE JAMES MD Mar 14, 2025 17:47
--- NOTE | 2025-03-14 18:22 | DVH ---
EXAM: US Retroperitoneal Limited, Renal CLINICAL INDICATION: Moderate to severe left and moderate right hydroureteronephr TECHNIQUE: Real-time limited ultrasound of the retroperitoneum with image documentation. COMPARISON: None FINDINGS: RIGHT KIDNEY: Moderate bilateral hydronephrosis. No stones. Right kidney measures 10.1 cm. LEFT KIDNEY: Left kidney measures up to 11.7 cm. BLADDER: Urinary bladder contains urinary Walls catheter. Prevoid volume 223 cc. OTHER FINDINGS: . IMPRESSION: Moderate bilateral hydronephrosis.
[2025-03-14 18:37] LABS: Alanine Aminotransferase 21 U/L (7-40); Alkaline Phosphatase 63 U/L (46-116); Aspartate Aminotransferase 24 U/L (<34)
[2025-03-14 18:53] LABS: Lipase 26 U/L (12-53)
[2025-03-14 20:00] VITALS: PULSE 72; RESP 18; O2SAT 94
[2025-03-14 20:32] VITALS: O2SAT 95
[2025-03-14 21:00] VITALS: BP 128/66; PULSE 72; RESP 18; TEMP 98.3; O2SAT 94
[2025-03-14] MEDS: SODIUM CHLORIDE 0.9% 1,000 ML IV SCH (21:04)
[2025-03-14] MEDS: ATORVASTATIN 20 MG TAB PO SCH (21:35)
[2025-03-15] VITALS (8 sets, daily range): BP systolic 82–177; BP diastolic 48–68; PULSE 60–81; RESP 16–18; TEMP 97.7–98.2; O2SAT 91–95
[2025-03-15] MEDS: ONDANSETRON HCL 4 MG/2 ML VIAL IV PRN (05:59)
[2025-03-15 07:48] LABS: Basophils # (auto) 0 10 ^3/uL (0-0.2); Eosinophils # (auto) 0.1 10 ^3/uL (0-0.8); Hematocrit 35.7 % (41.0-53.0); Hemoglobin 11.7 g/dL (13.5-17.5); Lymphocytes % (auto) 11.8 % (10.0-50.0); Mean Corpuscular Hgb Conc. 32.7 g/dL (32.0-36.0); Monocytes # (auto) 1.1 10 ^3/uL (0-1.3); Neutrophils # (auto) 5.1 10 ^3/uL (1.6-8.6); Nucleated Red Blood Cells % 0.1 %
[2025-03-15 07:51] LABS: Basophils % (auto) 0.3 % (0.0-2.0); Eosinophils % (auto) 1.2 % (0.0-7.0); Lymphocytes # (auto) 0.9 10 ^3/uL (0.4-5.4); Mean Corpuscular Hemoglobin 25.9 pg (28.0-32.0); Mean Corpuscular Volume 79.1 fL (80.0-100.0); Monocytes % (auto) 15.4 % (0.0-12.0); Neutrophils % (auto) 71.3 % (37.0-80.0); Platelet Count (auto) 209 10^3/uL (140-450); Red Blood Cells 4.52 10^6/uL (4.5-5.90); Red Cell Distribution Width 15.4 % (11.8-14.3); White Blood Cell 7.2 10^3/uL (4.4-10.8)
[2025-03-15 08:07] LABS: Alanine Aminotransferase 19 U/L (7-40); Alkaline Phosphatase 62 U/L (46-116); Anion Gap 9 (5-15); Aspartate Aminotransferase 22 U/L (<34); BUN/Creatinine Ratio 14.4 (10.0-20.0); Bilirubin, Total 0.4 mg/dL (0.2-1.0); Blood Urea Nitrogen 13 mg/dL (9-23); Calcium 9.8 mg/dL (8.7-10.4); Carbon Dioxide 27 mmol/L (20-31); Chloride 107 mmol/L (98-107); Potassium 4.3 mmol/L (3.5-5.1); Sodium 143 mmol/L (136-145); Total Protein 6.4 g/dL (5.7-8.2)
[2025-03-15 08:09] LABS: Albumin 4.2 g/dL (3.2-4.8); Glucose 110 mg/dL (74-106)
[2025-03-15] MEDS: LOSARTAN POTASSIUM 50 MG TAB PO SCH (12:17)
--- NOTE | 2025-03-15 14:51 | DVHPN2 ---
Subjective Patient continues to report having suprapubic pain Reviewed: Care Plan, H&P, Labs, Medications, Previous Orders Changes from previous H/P or p: No Changes General: Per HPI Genitourinary: Hematuria Objective Vitals Vital Signs Date Time Temp Pulse Resp B/P (MAP) Pulse Ox O2 Delivery O2 Flow Rate FiO2 03/15/25 13:00 97.8 70 16 117/54 (75) 94 97.8 03/15/25 07:30 Nasal Cannula 2.0 03/15/25 07:30 28 Intake/Output Intake and Output 03/15/25 07:00 Intake Total 1350 ml Output Total 400 ml Balance 950 ml Intake Oral 350 ml IV Total 1000 ml Output Urine Total 400 ml General Appearance: Alert, Oriented X3, Cooperative, mild distress HEENT: Atraumatic, PERRLA Cardiovascular: Normal S1, Normal S2 Abdomen: Normal bowel sounds, Soft, No tenderness, No hepatospenomegaly Musculoskeletal: Normal sensory function, Normal motor function Skin: Dry, Intact Psych/Mental Status: Mental status NL, Mood NL Medications Current Medications Medications Dose Ordered Sig/Catia Route Start Time Stop Time Status Last Admin Dose Admin Ondansetron HCl 4 mg Q4HP PRN IV 03/14/25 12:45 03/15/25 05:59 4 MG Acetaminophen 650 mg Q6HP PRN PO 03/14/25 12:45 Nitroglycerin 0.4 mg Q5MINP PRN SL 03/14/25 12:45 Morphine Sulfate 2 mg Q30M PRN IV 03/14/25 12:45 Losartan Potassium 50 mg DAILY PO 03/15/25 10:00 03/15/25 12:17 50 MG Atorvastatin Calcium 20 mg HS PO 03/14/25 22:00 03/14/25 21:35 20 MG Albuterol 2.5 mg Q4HPRN PRN NEB 03/14/25 12:45 Ipratropium [place] 0.5 mg Q4HPRN PRN NEB 03/14/25 12:45 Ceftriaxone Sodium 50 ml @ 100 mls/hr DAILY@09 IV 03/14/25 12:45 03/15/25 12:17 100 MLS/HR Acetaminophen/ Hydrocodone Bitart 1 tab Q6HPRN PRN PO 03/14/25 14:00 03/15/25 12:16 1 TAB Morphine Sulfate 1 mg Q6HP PRN IV 03/14/25 14:00 03/14/25 14:23 1 MG Sodium Chloride 1,000 ml @ 100 mls/hr Q10H IV 03/14/25 17:30 03/15/25 06:06 100 MLS/HR Laboratory Results Laboratory Tests 03/15/25 06:58 Chemistry Test 03/15/25 06:58 Albumin 4.2 g/dL (3.2-4.8) Calcium Level 9.8 mg/dL (8.7-10.4) Total Protein 6.4 g/dL (5.7-8.2) LFT Test 03/15/25 06:58 Alanine Aminotransferase (ALT) 19 U/L (7-40) Alkaline Phosphatase 62 U/L (46-116) Aspartate Amino Transferase (AST) 22 U/L (<34) Total Bilirubin 0.4 mg/dL (0.2-1.0) Urinalysis Test 03/14/25 09:32 Urine Color Red (Yellow) H Urine Clarity Ex.turbid (Clear) Urine pH 5.5 (5.0-9.0) Urine Specific [place] 1.013 (1.001-1.035) Urine Protein 1+ (Negative) H Urine Ketones Negative (Negative) Urine Blood 3+ /uL (Negative) H Urine Nitrite Negative (Negative) Urine Bilirubin Negative (Negative) Urine Urobilinogen Normal mg/dL (Negative) Urine Leukocyte Esterase 3+ /uL (Negative) Urine RBC 6219 /hpf (0 - 3) Urine Microscopic WBC 827 /HPF (0-3) H Urine Squamous Epithelial Cells None seen /hpf (<5) Urine Bacteria None seen /hpf (None Seen) Urine Mucus Few (None Seen) Urine Glucose Normal mg/dL (Normal) Microbiology Microbiology Date/Time Source Procedure Growth Status 03/14/25 18:00 Nose MRSA Screen - Final Complete 03/14/25 09:32 Urine - Walls Port Urine Culture - Preliminary Resulted Labs and/or images reviewed: Labs reviewed by me, Image(s) reviewed by me Assessment/Plan Assessment/Plan Impression: -bladder cancer -obstructive uropathy, probably secondary to bladder tumor -obesity -COPD -hypertension -complicated cystitis -hematuria Plan: -long discussion made with the patient. Apparently he is scheduled to have a Port-A-Cath placed this coming Monday at [facility]. Patient is also scheduled to start chemotherapy on March 27. Patient was diagnosed with bladder cancer back in September of this year. -continue antibiotic therapy -urology consultation: Plans for cystoscopy this Monday -interventional radiology consultation for Port-A-Cath placement -repeat labs in a.m. -pain management -hold anticoagulation, recommend SCDs for DVT prophylaxis Total time spent with patient discussing and formulating plan of care: 35 minutes. This medical document was created using an electronic medical record system with [employer] dictation system. Although this document has been carefully reviewed, there may still be some phonetic and typographical errors. These areas are purely typographical due to imperfections of the software programs, and do not reflect any compromise in the patient's medical care. Plan discussed with: Patient, Other (RN) My Orders Orders - ALTA BATISTA NP Procedure Category Date Status Time Basic Metabolic Panel LAB 03/16/25 Verified 04:00 PTPTT LAB 03/16/25 Verified 04:00 Psa Total+% Free LAB 03/15/25 Logged 14:34 Date of Service: Mar 15, 2025 Billing Provider: ALTA BATISTA NP Common Visit Codes: [id number] INP/OBS CARE(HIGH) ALTA BATISTA NP Mar 15, 2025 14:51
[2025-03-16] VITALS (10 sets, daily range): BP systolic 91–116; BP diastolic 44–69; PULSE 61–77; RESP 17–22; TEMP 97.4–98; O2SAT 94–98
[2025-03-16 07:06] LABS: PSA Free 0.22 ng/mL; Prostate Specific Antigen 0.8 ng/mL (0.0-4.0)
[2025-03-16 07:51] LABS: Chloride 105 mmol/L (98-107); Potassium 4.2 mmol/L (3.5-5.1); Sodium 143 mmol/L (136-145)
[2025-03-16 07:52] LABS: Anion Gap 9 (5-15); Calcium 9.8 mg/dL (8.7-10.4); Carbon Dioxide 29 mmol/L (20-31)
[2025-03-16 07:57] LABS: BUN/Creatinine Ratio 16.1 (10.0-20.0); Blood Urea Nitrogen 15 mg/dL (9-23); Glucose 108 mg/dL (74-106)
[2025-03-16 08:03] LABS: INR 0.96 (0.9-1.15); Partial Thromboplastin Time 25.9 SEC (24.5-34.5); Prothrombin Time 10.2 sec (9.3-11.8)
--- NOTE | 2025-03-16 14:28 | DVHPN2 ---
Subjective Patient now reporting constipation Reviewed: Care Plan, H&P, Labs, Medications, Previous Orders Changes from previous H/P or p: Changes General: Per HPI Genitourinary: Hematuria Objective Vitals Vital Signs Date Time Temp Pulse Resp B/P (MAP) Pulse Ox O2 Delivery O2 Flow Rate FiO2 03/16/25 13:00 97.6 69 18 109/44 (65) 95 97.6 03/15/25 20:00 Nasal Cannula 2.0 03/15/25 20:00 28 Intake/Output Intake and Output 03/16/25 07:00 Intake Total 1740 ml Output Total 1550 ml Balance 190 ml Intake Oral 690 ml IV Total 1050 ml Output Urine Total 1550 ml General Appearance: Alert, Oriented X3, Cooperative, mild distress HEENT: Atraumatic, PERRLA Cardiovascular: Normal S1, Normal S2 Abdomen: Normal bowel sounds, Soft, No tenderness, No hepatospenomegaly Musculoskeletal: Normal sensory function, Normal motor function Skin: Dry, Intact Psych/Mental Status: Mental status NL, Mood NL Medications Current Medications Medications Dose Ordered Sig/Catia Route Start Time Stop Time Status Last Admin Dose Admin Ondansetron HCl 4 mg Q4HP PRN IV 03/14/25 12:45 03/15/25 05:59 4 MG Acetaminophen 650 mg Q6HP PRN PO 03/14/25 12:45 Nitroglycerin 0.4 mg Q5MINP PRN SL 03/14/25 12:45 Morphine Sulfate 2 mg Q30M PRN IV 03/14/25 12:45 Losartan Potassium 50 mg DAILY PO 03/15/25 10:00 03/16/25 10:59 50 MG Atorvastatin Calcium 20 mg HS PO 03/14/25 22:00 03/15/25 22:01 20 MG Albuterol 2.5 mg Q4HPRN PRN NEB 03/14/25 12:45 Ipratropium [place] 0.5 mg Q4HPRN PRN NEB 03/14/25 12:45 Ceftriaxone Sodium 50 ml @ 100 mls/hr DAILY@09 IV 03/14/25 12:45 03/16/25 10:58 100 MLS/HR Acetaminophen/ Hydrocodone Bitart 1 tab Q6HPRN PRN PO 03/14/25 14:00 03/16/25 13:23 1 TAB Morphine Sulfate 1 mg Q6HP PRN IV 03/14/25 14:00 03/14/25 14:23 1 MG Sodium Chloride 1,000 ml @ 100 mls/hr Q10H IV 03/14/25 17:30 03/16/25 04:43 100 MLS/HR Laboratory Results Laboratory Tests 03/15/25 06:58 03/16/25 06:51 Chemistry Test 03/16/25 06:51 Calcium Level 9.8 mg/dL (8.7-10.4) Coagulation Test 03/16/25 06:51 Prothrombin Time 10.2 sec (9.3-11.8) Prothrombin Time INR 0.96 (0.9-1.15) Activated Partial Thromboplast Time 25.9 SEC (24.5-34.5) Urinalysis Test 03/14/25 09:32 Urine Color Red (Yellow) H Urine Clarity Ex.turbid (Clear) Urine pH 5.5 (5.0-9.0) Urine Specific [place] 1.013 (1.001-1.035) Urine Protein 1+ (Negative) H Urine Ketones Negative (Negative) Urine Blood 3+ /uL (Negative) H Urine Nitrite Negative (Negative) Urine Bilirubin Negative (Negative) Urine Urobilinogen Normal mg/dL (Negative) Urine Leukocyte Esterase 3+ /uL (Negative) Urine RBC 6219 /hpf (0 - 3) Urine Microscopic WBC 827 /HPF (0-3) H Urine Squamous Epithelial Cells None seen /hpf (<5) Urine Bacteria None seen /hpf (None Seen) Urine Mucus Few (None Seen) Urine Glucose Normal mg/dL (Normal) Microbiology Microbiology Date/Time Source Procedure Growth Status 03/14/25 18:00 Nose MRSA Screen - Final Complete 03/14/25 09:32 Urine - Walls Port Urine Culture - Final Complete Labs and/or images reviewed: Labs reviewed by me, Image(s) reviewed by me Assessment/Plan Assessment/Plan Impression: -bladder cancer -obstructive uropathy, probably secondary to bladder tumor -obesity -COPD -hypertension -complicated cystitis -hematuria -constipation Plan: Events: Constipated. Start bowel regimen. Urine beginning to have less hematuria. Urine culture negative. -continue antibiotic therapy -urology consultation: Plans for cystoscopy this Monday -interventional radiology consultation for Port-A-Cath placement -repeat labs in a.m. -pain management -hold anticoagulation, recommend SCDs for DVT prophylaxis -NPO after midnight Total time spent with patient discussing and formulating plan of care: 35 minutes. This medical document was created using an electronic medical record system with [employer] dictation system. Although this document has been carefully reviewed, there may still be some phonetic and typographical errors. These areas are purely typographical due to imperfections of the software programs, and do not reflect any compromise in the patient's medical care. Plan discussed with: Patient, Spouse, Other (RN) My Orders Orders - ALTA BATISTA NP Procedure Category Date Status Time * Radiologist Consult CONS 03/15/25 Transmitted 14:37 Lactulose Oral PHA 03/16/25 In Process 14:30 NS PHA 03/16/25 Verified 14:30 Docusate Sodium PHA 03/16/25 Verified Capsule (Colace 22:00 Bisacodyl Suppository PHA 03/16/25 Verified (Dulcolax Supposit 14:30 Npo After Midnight QUIN 03/16/25 Verified 14:25 Npo (Nothing By DIET 03/17/25 Verified Mouth) Diet Breakfast Complete Blood Count LAB 03/17/25 Verified 04:00 Date of Service: Mar 16, 2025 Billing Provider: ALTA BATISTA NP Common Visit Codes: [id number] INP/OBS CARE(HIGH) ALTA BATISTA NP Mar 16, 2025 14:28
[2025-03-16] MEDS: SODIUM CHLORIDE 0.9% 1,000 ML IV SCH (14:30)
[2025-03-16] MEDS: LACTULOSE 20Gm/30ML SOLN PO ONE (15:13)
[2025-03-16] MEDS: DOCUSATE SOD 100 MG CAP PO SCH (22:11)
--- NOTE | 2025-03-16 22:37 | DVHPN2 ---
Progress Note - Dictate Date Seen: Mar 16, 2025 Has the PT tested + for MRSA If YES, has PT been informed?: No Medical Necessity Reason Pt with a Central, PICC or Fol: Yes The following are medically ne: Walls Catheter Medical Necessity Reason Gross hematuria Subjective Patient has muscle invasive bladder cancer (by history). Dx made by TURBT in September 2024 by his urologist in [place], [place]. He was evaluated by [facility] for radical cystectomy and preoperative chemotherapy. vital signs Vital Sign Date Time Temp Pulse Resp B/P (MAP) Pulse Ox O2 Delivery O2 Flow Rate FiO2 03/16/25 21:00 97.7 77 17 108/54 (72) 94 97.7 03/16/25 19:04 Nasal Cannula* 2 28 Total Intake and Output 03/15/25 03/15/25 03/16/25 15:00 23:00 07:00 Intake Total 290 ml 150 ml 1300 ml Output Total 900 ml 650 ml Balance 290 ml -750 ml 650 ml medications Current Medications Medications Dose Ordered Sig/Catia Route Start Time Stop Time Status Last Admin Dose Admin Ondansetron HCl 4 mg Q4HP PRN IV 03/14/25 12:45 03/15/25 05:59 4 MG Acetaminophen 650 mg Q6HP PRN PO 03/14/25 12:45 Nitroglycerin 0.4 mg Q5MINP PRN SL 03/14/25 12:45 Morphine Sulfate 2 mg Q30M PRN IV 03/14/25 12:45 Losartan Potassium 50 mg DAILY PO 03/15/25 10:00 03/16/25 10:59 50 MG Atorvastatin Calcium 20 mg HS PO 03/14/25 22:00 03/16/25 22:11 20 MG Albuterol 2.5 mg Q4HPRN PRN NEB 03/14/25 12:45 Ipratropium [place] 0.5 mg Q4HPRN PRN NEB 03/14/25 12:45 Ceftriaxone Sodium 50 ml @ 100 mls/hr DAILY@09 IV 03/14/25 12:45 03/16/25 10:58 100 MLS/HR Acetaminophen/ Hydrocodone Bitart 1 tab Q6HPRN PRN PO 03/14/25 14:00 03/16/25 19:24 1 TAB Morphine Sulfate 1 mg Q6HP PRN IV 03/14/25 14:00 03/14/25 14:23 1 MG Sodium Chloride 1,000 ml @ 75 mls/hr [id number] IV 03/16/25 14:30 03/16/25 14:30 75 MLS/HR Docusate Sodium 100 mg BID PO 03/16/25 22:00 03/16/25 22:11 100 MG Bisacodyl 10 mg DAILYP PRN MO 03/16/25 14:[address] with hematuria noted laboratory and microbiology Laboratory Tests 03/16/25 06:51 03/15/25 06:58 Test 03/16/25 06:51 Range/Units Serum Glucose 108 H 74-106 mg/dL Problem List Gross hematuria History of muscle invasive bladder cancer Assessment/Plan Cystoscopy with clot evacuation/fulguration and resection of bladder tumors TBA Plan discussed with: Patient, Other GERALDINE JAMES MD Mar 16, 2025 22:37
[2025-03-17] VITALS (11 sets, daily range): BP systolic 119–148; BP diastolic 44–60; PULSE 61–77; RESP 12–18; TEMP 97.5–98.3; O2SAT 94–98
[2025-03-17 06:31] LABS: Basophils # (auto) 0 10 ^3/uL (0-0.2); Basophils % (auto) 0.7 % (0.0-2.0); Eosinophils # (auto) 0.2 10 ^3/uL (0-0.8); Eosinophils % (auto) 2.2 % (0.0-7.0); Hematocrit 32.1 % (41.0-53.0); Hemoglobin 10.6 g/dL (13.5-17.5); Lymphocytes # (auto) 0.9 10 ^3/uL (0.4-5.4); Lymphocytes % (auto) 13.3 % (10.0-50.0); Mean Corpuscular Hemoglobin 26.3 pg (28.0-32.0); Mean Corpuscular Hgb Conc. 33.1 g/dL (32.0-36.0); Mean Corpuscular Volume 79.3 fL (80.0-100.0); Neutrophils # (auto) 4.7 10 ^3/uL (1.6-8.6); Neutrophils % (auto) 68.8 % (37.0-80.0); Platelet Count (auto) 189 10^3/uL (140-450); Red Blood Cells 4.05 10^6/uL (4.5-5.90); Red Cell Distribution Width 15.3 % (11.8-14.3); White Blood Cell 6.8 10^3/uL (4.4-10.8)
[2025-03-17] MEDS: LIDOCAINE 2%HCL (LOCAL ANESTH.) INJ 20ML MDV ONE (12:04)
[2025-03-17] MEDS: MIDAZOLAM HCL 2MG/2ML 2ml VIAL (1mg/ml) ONE (12:04)
[2025-03-17] MEDS: fentaNYL CITRATE 100 MCG/2 ML VL ONE (12:04)
[2025-03-17] MEDS: HEPARIN SODIUM (PORCINE) 5000 UNITS/ML 1ML VIAL ONE (12:16)
--- NOTE | 2025-03-17 14:38 | DVHPN2 ---
Subjective Patient now reporting constipation Reviewed: Care Plan, H&P, Labs, Medications, Previous Orders Changes from previous H/P or p: No Changes General: Per HPI Genitourinary: Hematuria Objective Vitals Vital Signs Date Time Temp Pulse Resp B/P (MAP) Pulse Ox O2 Delivery O2 Flow Rate FiO2 03/17/25 14:10 65 15 119/52 (74) 95 03/17/25 13:10 98.2 98.2 03/17/25 08:15 Nasal Cannula* 2 28 Intake/Output Intake and Output 03/17/25 07:00 Intake Total 1660 ml Output Total 1875 ml Balance -215 ml Intake Oral 610 ml IV Total 1050 ml Output Urine Total 1875 ml General Appearance: Alert, Oriented X3, Cooperative, mild distress HEENT: Atraumatic, PERRLA Cardiovascular: Normal S1, Normal S2 Abdomen: Normal bowel sounds, Soft, No tenderness, No hepatospenomegaly Musculoskeletal: Normal sensory function, Normal motor function Skin: Dry, Intact Psych/Mental Status: Mental status NL, Mood NL Medications Current Medications Medications Dose Ordered Sig/Catia Route Start Time Stop Time Status Last Admin Dose Admin Ondansetron HCl 4 mg Q4HP PRN IV 03/14/25 12:45 03/15/25 05:59 4 MG Acetaminophen 650 mg Q6HP PRN PO 03/14/25 12:45 Nitroglycerin 0.4 mg Q5MINP PRN SL 03/14/25 12:45 Morphine Sulfate 2 mg Q30M PRN IV 03/14/25 12:45 Losartan Potassium 50 mg DAILY PO 03/15/25 10:00 03/16/25 10:59 50 MG Atorvastatin Calcium 20 mg HS PO 03/14/25 22:00 03/16/25 22:11 20 MG Albuterol 2.5 mg Q4HPRN PRN NEB 03/14/25 12:45 Cancel Ipratropium [place] 0.5 mg Q4HPRN PRN NEB 03/14/25 12:45 Cancel Ceftriaxone Sodium 50 ml @ 100 mls/hr DAILY@09 IV 03/14/25 12:45 03/17/25 09:02 100 MLS/HR Acetaminophen/ Hydrocodone Bitart 1 tab Q6HPRN PRN PO 03/14/25 14:00 03/16/25 19:24 1 TAB Morphine Sulfate 1 mg Q6HP PRN IV 03/14/25 14:00 03/17/25 05:49 1 MG Sodium Chloride 1,000 ml @ 75 mls/hr [id number] IV 03/16/25 14:30 03/17/25 05:48 75 MLS/HR Docusate Sodium 100 mg BID PO 03/16/25 22:00 03/16/25 22:11 100 MG Bisacodyl 10 mg DAILYP PRN [place] 03/16/25 14:30 Laboratory Results Laboratory Tests 03/16/25 06:51 03/17/25 04:30 Urinalysis Test 03/14/25 09:32 Urine Color Red (Yellow) H Urine Clarity Ex.turbid (Clear) Urine pH 5.5 (5.0-9.0) Urine Specific [place] 1.013 (1.001-1.035) Urine Protein 1+ (Negative) H Urine Ketones Negative (Negative) Urine Blood 3+ /uL (Negative) H Urine Nitrite Negative (Negative) Urine Bilirubin Negative (Negative) Urine Urobilinogen Normal mg/dL (Negative) Urine Leukocyte Esterase 3+ /uL (Negative) Urine RBC 6219 /hpf (0 - 3) Urine Microscopic WBC 827 /HPF (0-3) H Urine Squamous Epithelial Cells None seen /hpf (<5) Urine Bacteria None seen /hpf (None Seen) Urine Mucus Few (None Seen) Urine Glucose Normal mg/dL (Normal) Microbiology Microbiology Date/Time Source Procedure Growth Status 03/14/25 18:00 Nose MRSA Screen - Final Complete 03/14/25 09:32 Urine - [place] Urine Culture - Final Complete Labs and/or images reviewed: Labs reviewed by me, Image(s) reviewed by me Assessment/Plan Assessment/Plan Impression: -bladder cancer -obstructive uropathy, probably secondary to bladder tumor -obesity -COPD -hypertension -complicated cystitis -hematuria -constipation Plan: Events: Status post Port-A-Cath has been. Continues to have constipation. -bowel regimen: Dulcolax, add Fleet enema if Dulcolax does not evacuate valves. -continue antibiotic therapy -urology consultation: Cystoscopy plans for tomorrow -repeat labs in a.m. -pain management -hold anticoagulation, recommend SCDs for DVT prophylaxis -NPO after midnight Total time spent with patient discussing and formulating plan of care: 35 minutes. This medical document was created using an electronic medical record system with [employer] dictation system. Although this document has been carefully reviewed, there may still be some phonetic and typographical errors. These areas are purely typographical due to imperfections of the software programs, and do not reflect any compromise in the patient's medical care. Plan discussed with: Patient, Other (RN) My Orders Orders - ALTA BATISTA NP Procedure Category Date Status Time Insertion Of Venous XY 03/17/25 Taken Cath 12:59 Basic Metabolic Panel LAB 03/18/25 Verified 04:00 Complete Blood Count LAB 03/18/25 Verified 04:00 Cardiac DIET 03/17/25 Transmitted Diet-2gna,Lofat,Lochol Dinner Date of Service: Mar 17, 2025 Billing Provider: ALTA BATISTA NP Common Visit Codes: [id number] INP/OBS CARE(HIGH) ALTA BATISTA NP Mar 17, 2025 14:38
[2025-03-17] MEDS: FLEET ENEMA(ADULT) 135 ML PR ONE (14:45)
--- NOTE | 2025-03-17 15:47 | DVH ---
XY Insertion of Venous Cath HISTORY: PEÑA CATH PL PROCEDURE: Informed consent was obtained. The patient was placed supine on the interventional table. A limited localization ultrasound of the right neck base was obtained. The right upper chest and neck base were prepped with chlorhexidine which was allowed to dry and draped in the usual sterile fashio n. Time out was performed. With real-time ultrasound guidance, the internal jugular vein was accessed with a micropuncture kit, and an image documenting patency sent to PACS. The planned skin tract and the port placement site were were infiltrated with lidocaine with epinephr ine. The subcutaneous pocket was created with sharp and blunt dissection. The catheter was tunneled t hrough the skin tract to the neck site. The [address] port was attached to the tubing flushed. The catheter was trimmed to desired length. The internal jugular vein entrance site was serially dilated and the catheter was placed through a peel-a-way sheath. The port was flushed with heparinized salin e and demonstrated satisfactory flow. The skin openings were sutured closed in 1 layers with Vicryl, as well as and Dermabond and steristrips and then sterile dressings applied. A post procedure image w as obtained. No immediate complication was identified. DAP 131 FLUOROSCOPY TIME: 0.6 minutes. SEDATION: Dr. Noelle Darnell was personally responsible for the administration of moderate sedation during the procedure performed, including the use of an independent trained observer who had no other duties during the procedure. The drugs utilized were IV fentanyl and versed (see nursing log for details). The total time of supervision by the attending physician was approximately 45 minutes. FINDINGS: Widely patent right internal jugular vein. Post procedure image demonstrates [id number] in the right upper chest with the tip upper cavoatrial junction. IMPRESSION: Successful placement of 8 [place] right chest [id number].
[2025-03-17] MEDS: BISACODYL 10 MG RECT SUPP PR ONE (16:17)
[2025-03-18 05:00] VITALS: BP 123/68; PULSE 79; RESP 18; TEMP 97.3; O2SAT 96
[2025-03-18 06:21] LABS: Chloride 104 mmol/L (98-107); Potassium 3.9 mmol/L (3.5-5.1); Sodium 144 mmol/L (136-145)
[2025-03-18 06:22] LABS: Anion Gap 9 (5-15); Basophils # (auto) 0 10 ^3/uL (0-0.2); Carbon Dioxide 31 mmol/L (20-31); Eosinophils # (auto) 0.1 10 ^3/uL (0-0.8); Lymphocytes # (auto) 0.8 10 ^3/uL (0.4-5.4)
[2025-03-18 06:26] LABS: Basophils % (auto) 0.7 % (0.0-2.0); Eosinophils % (auto) 1.8 % (0.0-7.0); Hematocrit 33.2 % (41.0-53.0); Lymphocytes % (auto) 13.2 % (10.0-50.0); Mean Corpuscular Hemoglobin 26.3 pg (28.0-32.0); Mean Corpuscular Hgb Conc. 33.1 g/dL (32.0-36.0); Mean Corpuscular Volume 79.4 fL (80.0-100.0); Neutrophils # (auto) 4.1 10 ^3/uL (1.6-8.6); Neutrophils % (auto) 67.3 % (37.0-80.0); Platelet Count (auto) 192 10^3/uL (140-450); Red Blood Cells 4.18 10^6/uL (4.5-5.90)
[2025-03-18 06:27] LABS: BUN/Creatinine Ratio 17.1 (10.0-20.0); Blood Urea Nitrogen 14 mg/dL (9-23); Glucose 94 mg/dL (74-106)
[2025-03-18 09:00] VITALS: BP 145/47; PULSE 73; RESP 16; TEMP 98.2; O2SAT 96
[2025-03-18] MEDS ORDERED: MIDAZOLAM HCL 2MG/2ML 2ml VIAL (1mg/ml) ONE (12:42)
[2025-03-18] MEDS ORDERED: fentaNYL CITRATE 100 MCG/2 ML VL ONE (12:42)
[2025-03-18] MEDS: SUCCINYLCHOLINE CHLORIDE 20 MG/ML 10ML VIAL IV ONE (12:43)
[2025-03-18] MEDS: CIPROFLOXACIN 400MG/200ML 200 ML IV ONE (12:45)
[2025-03-18] MEDS ORDERED: DexAMETHasone SOD PHOS 10MG/1ML VIAL INJ ONE (13:04)
[2025-03-18] MEDS ORDERED: PROPOFOL 10 MG/ML 20 ML IV ONE (13:24)
[2025-03-18] MEDS ORDERED: ONDANSETRON HCL 4 MG/2 ML VIAL ONE (13:24)
[2025-03-18 13:45] VITALS: O2SAT 100
[2025-03-18] MEDS ORDERED: MORPHINE SULFATE 4 MG/ML SYR/VIAL IV PRN (13:45)
[2025-03-18] MEDS ORDERED: hydrALAZINE HCL 20 MG/ML VL IV PRN (13:45)
[2025-03-18] MEDS: ONDANSETRON HCL 4 MG/2 ML VIAL IV ONE (13:45)
[2025-03-18] MEDS: HYDROmorphone HCL 2 MG/ML VL/or syr IV PRN (13:53)
--- NOTE | 2025-03-18 13:58 | DVHNC2 ---
Procedure - OPERATIVE REPORT Pre-op. Diagnosis: History of muscle invasive bladder cancer Gross hematuria Bilateral hydronephrosis bladder mass Post-op. Diagnosis: Same as pre-op diagnosis Operation: Transurethral resection of bladder tumors Cystoscopy with Clot evacuation and fulguration Anesthesia: General Indications: The patient has history of muscle invasive bladder cancer diagnosed in September of 2024 by another urologist out of the area. He has been undergoing chemotherapy and is planning to undergo possible radical cystectomy versus radiation therapy at [facility]. He is admitted to [facility] for gross hematuria. CT scan shows bilateral hydronephrosis and bladder mass. Details of Procedure: Indications, risks, complications, alternatives and benefits of transurethral resection of bladder tumors are discusse with the patient. All questions were encouraged and answered. Patient is aware of risks/complications including but not limited to infection, bleeding, bladder injury requiring additional procedures, urinary incontinence and possible need for additional procedures. Patient consented to proceed. Patient is taken to the operating room and underwent appropriate anesthesia. After positioning in lithotomy, area of the genitalia is prepped and draped in usual sterile fashion. Resecting element on the resectoscope with 30 degree lens is used to access the bladder and remove the identified bladder mass. normal sa line irrigation with bipolar and instrumentations were used. Hemostasis obtained. The tumors involving the trigone area included the right ureteric orifice. The bladder neck lesions involved 12:00 to 6:00 including the prostatic urethra. There were tumors previously resected in the left dome area that was bleeding so cauterization was performed with button electrode. Once the hemos tasis is accomplished, resectoscope was removed in entirety. [address] [place]s catheter was inserted for continuous bladder irrigation. He was awakened and taken to recovery room in stable condition Specimens: Bladder tumors of the trigone as well as bladder neck region Complications: None GERALDINE JAMES MD Mar 18, 2025 13:58
[2025-03-18] MEDS: MIDAZOLAM HCL 2MG/2ML 2ml VIAL (1mg/ml) IV PRN (14:13)
[2025-03-18] MEDS: HYDROmorphone HCL 2 MG/ML VL/or syr ONE (14:18)
--- NOTE | 2025-03-18 14:28 | DVHPN2 ---
Subjective Patient now reporting constipation Reviewed: Care Plan, H&P, Labs, Medications, Previous Orders Changes from previous H/P or p: No Changes General: Per HPI Gastrointestinal: Abdominal Pain Genitourinary: Hematuria Objective Vitals Vital Signs Date Time Temp Pulse Resp B/P (MAP) Pulse Ox O2 Delivery O2 Flow Rate FiO2 03/18/25 13:45 Mask 11.0 100 03/18/25 13:45 100 03/18/25 09:00 98.2 73 16 145/47 (79) 98.2 Intake/Output Intake and Output 03/18/25 07:00 Intake Total 2565 ml Output Total 1550 ml Balance 1015 ml Intake Oral 1665 ml IV Total 50 ml Other 850 ml Output Urine Total 1550 ml # Bowel Movements 3 General Appearance: Alert, Oriented X3, Cooperative, mild distress HEENT: Atraumatic, PERRLA Cardiovascular: Normal S1, Normal S2 Abdomen: Normal bowel sounds, Soft, No tenderness, No hepatospenomegaly Genitourinary: No Apparent Abnormalities (Walls catheter) Musculoskeletal: Normal sensory function, Normal motor function Skin: Dry, Intact Psych/Mental Status: Mental status NL, Mood NL Medications Current Medications Medications Dose Ordered Sig/Catia Route Start Time Stop Time Status Last Admin Dose Admin Ondansetron HCl 4 mg Q4HP PRN IV 03/14/25 12:45 03/15/25 05:59 4 MG Acetaminophen 650 mg Q6HP PRN PO 03/14/25 12:45 Nitroglycerin 0.4 mg Q5MINP PRN SL 03/14/25 12:45 Morphine Sulfate 2 mg Q30M PRN IV 03/14/25 12:45 Losartan Potassium 50 mg DAILY PO 03/15/25 10:00 03/16/25 10:59 50 MG Atorvastatin Calcium 20 mg HS PO 03/14/25 22:00 03/17/25 21:26 20 MG Albuterol 2.5 mg Q4HPRN PRN NEB 03/14/25 12:45 Cancel Ipratropium [place] 0.5 mg Q4HPRN PRN NEB 03/14/25 12:45 Cancel Ceftriaxone Sodium 50 ml @ 100 mls/hr DAILY@09 IV 03/14/25 12:45 03/18/25 09:00 100 MLS/HR Acetaminophen/ Hydrocodone Bitart 1 tab Q6HPRN PRN PO 03/14/25 14:00 03/17/25 23:23 1 TAB Morphine Sulfate 1 mg Q6HP PRN IV 03/14/25 14:00 03/17/25 05:49 1 MG Sodium Chloride 1,000 ml @ 75 mls/hr [id number] IV 03/16/25 14:30 03/17/25 05:48 75 MLS/HR Docusate Sodium 100 mg BID PO 03/16/25 22:00 03/17/25 21:26 100 MG Bisacodyl 10 mg DAILYP PRN [place] 03/16/25 14:30 Hydralazine HCl 5 mg Q10M PRN IV 03/18/25 13:45 03/18/25 14:36 Midazolam HCl 1 mg Q10M PRN IV 03/18/25 13:45 03/18/25 14:26 Hydromorphone HCl 0.5 mg Q10M PRN IV 03/18/25 13:45 03/18/25 14:26 03/18/25 14:13 0.5 MG Laboratory Results Laboratory Tests 03/18/25 04:00 Chemistry Test 03/18/25 04:00 Calcium Level 10.0 mg/dL (8.7-10.4) Urinalysis Test 03/14/25 09:32 Urine Color Red (Yellow) H Urine Clarity Ex.turbid (Clear) Urine pH 5.5 (5.0-9.0) Urine Specific [place] 1.013 (1.001-1.035) Urine Protein 1+ (Negative) H Urine Ketones Negative (Negative) Urine Blood 3+ /uL (Negative) H Urine Nitrite Negative (Negative) Urine Bilirubin Negative (Negative) Urine Urobilinogen Normal mg/dL (Negative) Urine Leukocyte Esterase 3+ /uL (Negative) Urine RBC 6219 /hpf (0 - 3) Urine Microscopic WBC 827 /HPF (0-3) H Urine Squamous Epithelial Cells None seen /hpf (<5) Urine Bacteria None seen /hpf (None Seen) Urine Mucus Few (None Seen) Urine Glucose Normal mg/dL (Normal) Microbiology Microbiology Date/Time Source Procedure Growth Status 03/14/25 18:00 Nose MRSA Screen - Final Complete 03/14/25 09:32 Urine - [place] Urine Culture - Final Complete Labs and/or images reviewed: Image(s) reviewed by me Assessment/Plan Assessment/Plan Impression: -bladder cancer -obstructive uropathy, probably secondary to bladder tumor -obesity -COPD -hypertension -complicated cystitis -hematuria -constipation Plan: Events: Patient is status post transurethral bladder tumor resection with CBI. -bowel regimen: To be bowel regimen. Patient evacuate his bowels yesterday -continue antibiotic therapy -urology consultation: Further course of care per recommendations -pain management -hold anticoagulation, recommend SCDs for DVT prophylaxis -repeat labs in a.m. Total time spent with patient discussing and formulating plan of care: 35 minutes. This medical document was created using an electronic medical record system with [employer] dictation system. Although this document has been carefully reviewed, there may still be some phonetic and typographical errors. These areas are purely typographical due to imperfections of the software programs, and do not reflect any compromise in the patient's medical care. Plan discussed with: Patient, Other (RN) Date of Service: Mar 18, 2025 Billing Provider: ALTA BATISTA NP Common Visit Codes: [id number] INP/OBS CARE(HIGH) ALTA BATISTA NP Mar 18, 2025 14:28
[2025-03-18 16:52] VITALS: BP 150/60; PULSE 78; RESP 17; TEMP 97.7; O2SAT 90
[2025-03-18 21:00] VITALS: BP 127/56; PULSE 78; RESP 17; TEMP 97.6; O2SAT 92
[2025-03-19] VITALS (8 sets, daily range): BP systolic 95–143; BP diastolic 45–71; PULSE 58–79; RESP 16–18; TEMP 97–97.8; O2SAT 90–100
[2025-03-19] MEDS: BISACODYL 10 MG RECT SUPP PR PRN (04:06)
[2025-03-19 07:48] LABS: Basophils # (auto) 0 10 ^3/uL (0-0.2); Eosinophils # (auto) 0.1 10 ^3/uL (0-0.8); Eosinophils % (auto) 0.7 % (0.0-7.0); Lymphocytes # (auto) 0.7 10 ^3/uL (0.4-5.4); White Blood Cell 7.7 10^3/uL (4.4-10.8)
[2025-03-19 07:51] LABS: Basophils % (auto) 0.1 % (0.0-2.0); Hemoglobin 11.1 g/dL (13.5-17.5); Lymphocytes % (auto) 9.1 % (10.0-50.0); Mean Corpuscular Hemoglobin 26.1 pg (28.0-32.0); Mean Corpuscular Hgb Conc. 32.7 g/dL (32.0-36.0); Mean Corpuscular Volume 79.9 fL (80.0-100.0); Monocytes # (auto) 1.2 10 ^3/uL (0-1.3); Monocytes % (auto) 15.4 % (0.0-12.0); Neutrophils # (auto) 5.8 10 ^3/uL (1.6-8.6); Neutrophils % (auto) 74.7 % (37.0-80.0); Platelet Count (auto) 206 10^3/uL (140-450); Red Blood Cells 4.26 10^6/uL (4.5-5.90); Red Cell Distribution Width 15.1 % (11.8-14.3)
[2025-03-19 08:17] LABS: Chloride 103 mmol/L (98-107)
[2025-03-19 08:19] LABS: Calcium 9.7 mg/dL (8.7-10.4)
[2025-03-19 08:24] LABS: BUN/Creatinine Ratio 18.4 (10.0-20.0); Blood Urea Nitrogen 18 mg/dL (9-23); Glucose 109 mg/dL (74-106)
[2025-03-19 08:41] LABS: Potassium 4.2 mmol/L (3.5-5.1); Sodium 140 mmol/L (136-145)
[2025-03-19 08:42] LABS: Anion Gap 9 (5-15); Carbon Dioxide 28 mmol/L (20-31)
--- NOTE | 2025-03-19 14:40 | DVHPN2 ---
Subjective Patient now reporting constipation Reviewed: Care Plan, H&P, Labs, Medications, Previous Orders Changes from previous H/P or p: No Changes General: Per HPI Gastrointestinal: Abdominal Pain Genitourinary: Hematuria Objective Vitals Vital Signs Date Time Temp Pulse Resp B/P (MAP) Pulse Ox O2 Delivery O2 Flow Rate FiO2 03/19/25 14:13 65 18 143/71 96 0.0 21 03/19/25 09:00 97.2 97.2 03/19/25 08:00 Room Air* Intake/Output Intake and Output 03/19/25 07:00 Intake Total 2775 ml Output Total 8400 ml Balance -5625 ml Intake Oral 1425 ml IV Total 1350 ml Output Urine Total 8400 ml # Bowel Movements 1 General Appearance: Alert, Oriented X3, Cooperative, mild distress HEENT: Atraumatic, PERRLA Cardiovascular: Normal S1, Normal S2 Abdomen: Normal bowel sounds, Soft, No tenderness, No hepatospenomegaly Genitourinary: No Apparent Abnormalities (Walls catheter) Musculoskeletal: Normal sensory function, Normal motor function Skin: Dry, Intact Psych/Mental Status: Mental status NL, Mood NL Medications Current Medications Medications Dose Ordered Sig/Catia Route Start Time Stop Time Status Last Admin Dose Admin Ondansetron HCl 4 mg Q4HP PRN IV 03/14/25 12:45 03/15/25 05:59 4 MG Acetaminophen 650 mg Q6HP PRN PO 03/14/25 12:45 Nitroglycerin 0.4 mg Q5MINP PRN SL 03/14/25 12:45 Morphine Sulfate 2 mg Q30M PRN IV 03/14/25 12:45 Losartan Potassium 50 mg DAILY PO 03/15/25 10:00 03/19/25 08:34 50 MG Atorvastatin Calcium 20 mg HS PO 03/14/25 22:00 03/18/25 22:11 20 MG Albuterol 2.5 mg Q4HPRN PRN NEB 03/14/25 12:45 Cancel Ipratropium [place] 0.5 mg Q4HPRN PRN NEB 03/14/25 12:45 Cancel Ceftriaxone Sodium 50 ml @ 100 mls/hr DAILY@09 IV 03/14/25 12:45 03/19/25 08:34 100 MLS/HR Acetaminophen/ Hydrocodone Bitart 1 tab Q6HPRN PRN PO 03/14/25 14:00 03/19/25 05:35 1 TAB Morphine Sulfate 1 mg Q6HP PRN IV 03/14/25 14:00 03/19/25 10:28 1 MG Sodium Chloride 1,000 ml @ 75 mls/hr [id number] IV 03/16/25 14:30 03/19/25 08:34 75 MLS/HR Docusate Sodium 100 mg BID PO 03/16/25 22:00 03/19/25 08:34 100 MG Bisacodyl 10 mg DAILYP PRN [place] 03/16/25 14:30 03/19/25 04:06 10 MG Albuterol 2.5 mg Q6HWA NEB 03/19/25 18:00 Ipratropium [place] 0.5 mg Q6HWA NEB 03/19/25 18:00 Budesonide 0.5 mg BID NEB 03/19/25 22:00 Laboratory Results Laboratory Tests 03/19/25 07:22 Chemistry Test 03/19/25 07:22 Calcium Level 9.7 mg/dL (8.7-10.4) Urinalysis Test 03/14/25 09:32 Urine Color Red (Yellow) H Urine Clarity Ex.turbid (Clear) Urine pH 5.5 (5.0-9.0) Urine Specific [place] 1.013 (1.001-1.035) Urine Protein 1+ (Negative) H Urine Ketones Negative (Negative) Urine Blood 3+ /uL (Negative) H Urine Nitrite Negative (Negative) Urine Bilirubin Negative (Negative) Urine Urobilinogen Normal mg/dL (Negative) Urine Leukocyte Esterase 3+ /uL (Negative) Urine RBC 6219 /hpf (0 - 3) Urine Microscopic WBC 827 /HPF (0-3) H Urine Squamous Epithelial Cells None seen /hpf (<5) Urine Bacteria None seen /hpf (None Seen) Urine Mucus Few (None Seen) Urine Glucose Normal mg/dL (Normal) Microbiology Microbiology Date/Time Source Procedure Growth Status 03/14/25 18:00 Nose MRSA Screen - Final Complete 03/14/25 09:32 Urine - [place] Urine Culture - Final Complete Labs and/or images reviewed: Labs reviewed by me, Image(s) reviewed by me Assessment/Plan Assessment/Plan Impression: -bladder cancer -obstructive uropathy, probably secondary to bladder tumor -obesity -COPD -hypertension -complicated cystitis -hematuria -constipation Plan: Events: NO HEMATURIA NOTED WITH CBI. PATIENT ON NASAL CANNULA AT 1 L/MIN. START BRONCHODILATORS, PULMICORT, INCENTIVE SPIROMETER -bowel regimen: To be bowel regimen. Patient evacuate his bowels yesterday -continue antibiotic therapy -urology consultation: Further course of care per recommendations -pain management -hold anticoagulation, recommend SCDs for DVT prophylaxis -DISCHARGE PLANNING ONCE CLEARED BY UROLOGY Total time spent with patient discussing and formulating plan of care: 35 minutes. This medical document was created using an electronic medical record system with [employer] dictation system. Although this document has been carefully reviewed, there may still be some phonetic and typographical errors. These areas are purely typographical due to imperfections of the software programs, and do not reflect any compromise in the patient's medical care. Plan discussed with: Patient, Other (RN) My Orders Orders - ALTA BATISTA NP Procedure Category Date Status Time Incentive Spirometry ORDERS 03/19/25 Transmitted Q 1hr 14:01 Albuterol Medneb PHA 03/19/25 In Process (Ventolin Medneb) 18:00 Ipratropium Medneb PHA 03/19/25 In Process (Atrovent Medneb) 18:00 Budesonide PHA 03/19/25 In Process (Inhalation) 22:00 Date of Service: Mar 19, 2025 Billing Provider: ALTA BATISTA NP Common Visit Codes: [id number] INP/OBS CARE(HIGH) ALTA BATISTA NP Mar 19, 2025 14:40
--- NOTE | 2025-03-19 17:30 | DVHPN2 ---
Progress Note - Dictate Date Seen: Mar 19, 2025 Has the PT tested + for MRSA If YES, has PT been informed?: No Medical Necessity Reason Pt with a Central, PICC or Fol: Yes The following are medically ne: Walls Catheter Subjective Patient was having mild bladder pain. vital signs Vital Sign Date Time Temp Pulse Resp B/P (MAP) Pulse Ox O2 Delivery O2 Flow Rate FiO2 03/19/25 14:13 65 18 143/71 96 0.0 21 03/19/25 13:00 97.0 97.0 03/19/25 08:00 Room Air* Total Intake and Output 03/18/25 03/18/25 03/19/25 15:00 23:00 07:00 Intake Total 350 ml 1425 ml 1000 ml Output Total 2000 ml 6400 ml Balance 350 ml -575 ml -5400 ml medications Current Medications Medications Dose Ordered Sig/Catia Route Start Time Stop Time Status Last Admin Dose Admin Ondansetron HCl 4 mg Q4HP PRN IV 03/14/25 12:45 03/15/25 05:59 4 MG Acetaminophen 650 mg Q6HP PRN PO 03/14/25 12:45 Nitroglycerin 0.4 mg Q5MINP PRN SL 03/14/25 12:45 Morphine Sulfate 2 mg Q30M PRN IV 03/14/25 12:45 Losartan Potassium 50 mg DAILY PO 03/15/25 10:00 03/19/25 08:34 50 MG Atorvastatin Calcium 20 mg HS PO 03/14/25 22:00 03/18/25 22:11 20 MG Albuterol 2.5 mg Q4HPRN PRN NEB 03/14/25 12:45 Cancel Ipratropium [place] 0.5 mg Q4HPRN PRN NEB 03/14/25 12:45 Cancel Ceftriaxone Sodium 50 ml @ 100 mls/hr DAILY@09 IV 03/14/25 12:45 03/19/25 08:34 100 MLS/HR Acetaminophen/ Hydrocodone Bitart 1 tab Q6HPRN PRN PO 03/14/25 14:00 03/19/25 14:49 1 TAB Morphine Sulfate 1 mg Q6HP PRN IV 03/14/25 14:00 03/19/25 10:28 1 MG Sodium Chloride 1,000 ml @ 75 mls/hr [id number] IV 03/16/25 14:30 03/19/25 08:34 75 MLS/HR Docusate Sodium 100 mg BID PO 03/16/25 22:00 03/19/25 08:34 100 MG Bisacodyl 10 mg DAILYP PRN [place] 03/16/25 14:30 03/19/25 04:06 10 MG Albuterol 2.5 mg Q6HWA [facility] 03/19/25 18:00 Ipratropium [place] 0.5 mg Q6HWA [facility] 03/19/25 18:00 Budesonide 0.5 mg BID [facility] 03/19/25 22:00 objective Clear urine, CBI off. laboratory and microbiology Laboratory Tests 03/19/25 07:22 Test 03/19/25 07:22 Range/Units Serum Glucose 109 H 74-106 mg/dL Assessment/Plan D/C Walls. Patient to follow up with oncology at [facility]. Urology signing off. Problems(with codes): (1) Bladder neoplasm (2) Hematuria Dietary Evaluation Review Comments: 1) Advance diet as medically feasible 2) Continue current POC Expected Outcomes/Goals: To meet >75% estimated needs Fu 2-3 days Plan discussed with: Patient, Spouse, Daughter AWILDA SALMERON INDIGO Mar 19, 2025 17:30
[2025-03-19] MEDS: IPRATROPIUM BROM 0.5 MG/2.5ML INH SOL NEB SCH (19:06)
[2025-03-19] MEDS: BUDESONIDE (INHALATION) 0.5 MG/2 ML NEB NEB SCH (19:06)
[2025-03-19] MEDS: ALBUTEROL SULF 2.5 MG/0.5ML(0.5%) NEB SOLN NEB SCH (19:07)
[2025-03-20] VITALS (12 sets, daily range): BP systolic 110–147; BP diastolic 39–78; PULSE 58–78; RESP 17–19; TEMP 96.8–97.9; O2SAT 92–100
--- NOTE | 2025-03-20 07:47 | ECG ---
[facility] Test Date: 2025-03-18 Test Time: 12:39:39 Pat Name: DIANA CISNEROS Department: Room: 0298 B Gender: M Mold Stripper: ELAINE : 1955 Requested By: JOEY HOOD Order Number: [id number] Reading MD: Foreign Patel Measurements Intervals [place] Rate: 62 P: 39 DC: 152 QRS: 34 QRSD: 96 T: 44 QT: 412 QTc: 418 Interpretive Statements Normal sinus rhythm Electronically Signed On 03-22-2025 20:18:15 PDT by Foreign Patel Please click the below link to view image of tracing.
[2025-03-20] MEDS: IOHEXOL 350 MG/ML 100ML IJ ONE (11:46)
--- NOTE | 2025-03-20 13:19 | DVH ---
CTA Chest with intravenous contrast INDICATION: Hypoxia, rule out PE COMPARISON: None TECHNIQUE: Multidetector spiral CTA of the chest was performed of the chest with intravenous contrast . PULMONARY ANGIOGRAPHY PROTOCOL was utilized using a bolus-tracking technique centered on the main p ulmonary artery. Axial, coronal and sagittal multiplanar and MIP reformats were performed. CONTRAST: Type of contrast: Omni 350 Contrast injected: 100 ml Radiation dose : Chest: CTDI volume is 24.87 mGy. Dose-length product is 890.59 mGy*cm The dose indicators for CT are the volume computed Tomography (CT) dose Index (CTDIvol) and the dose Length product (DLP), and are measured in units of mGy and mGy-cm, respectively. These indicators are not patient dose, but values generated from the CT scanner acquisition factors. The report includes radiation exposure data for exposures received during this examination. Findings: Pulmonary artery: No pulmonary embolism Lower neck: Right IJ Port-A-Cath in place. Lungs: Atelectasis and consolidation in the lung bases. Heart/Vascular Structures: Normal heart size. No pericardial effusion. Lymph Nodes: Subcentimeter mediastinal lymph nodes. Pleura: Bilateral pleural effusions right greater than left with a possible loculated component in th e right major fissure. Musculoskeletal: No acute osseous abnormality. Soft tissues: Normal. Upper abdomen: Small amount of perihepatic ascites. Nodularity of both adrenal glands. IMPRESSION: 1. No pulmonary embolism. 2. Bilateral pleural effusions with possible loculation on the right. Bibasilar atelectasis and cons olidation. Ascites. Consider congestive failure and/or fluid overload. Superimposed infectious/ infla mmatory process is not excluded. Effusions could also be malignant given port-A-Cath in place. Clinic al correlation and continued follow-up is recommended. HS:Y
[2025-03-20] MEDS: METOCLOPRAMIDE HCL 5MG/ml INJ 2ml VIAL IV ONE (13:37)
[2025-03-20] MEDS: LACTULOSE 20Gm/30ML SOLN PO ONE (13:37)
[2025-03-20] MEDS: FUROSEMIDE 40 MG/4 ML VIAL IV ONE (13:38)
[2025-03-20] MEDS: FLEET ENEMA(ADULT) 135 ML PR ONE (16:34)
[2025-03-21] VITALS (14 sets, daily range): BP systolic 98–139; BP diastolic 52–70; PULSE 55–84; RESP 16–20; TEMP 96.4–98.6; O2SAT 92–100
[2025-03-21] MEDS: ACETAMINOPHEN 325 MG TAB PO PRN (01:55)
--- NOTE | 2025-03-21 11:57 | DVHPN2 ---
Reviewed: Care Plan, H&P, Labs, Medications, Previous Orders Changes from previous H/P or p: No Changes General: Per HPI Gastrointestinal: Abdominal Pain Genitourinary: Hematuria Objective Vitals Vital Signs Date Time Temp Pulse Resp B/P (MAP) Pulse Ox O2 Delivery O2 Flow Rate FiO2 03/21/25 09:10 98.6 64 20 124/61 (82) 95 98.6 03/21/25 08:00 Room Air* 0 21 Intake/Output Intake and Output 03/21/25 07:00 Intake Total 890 ml Balance 890 ml Intake Oral 890 ml # Voids 10 General Appearance: Alert, Oriented X3, Cooperative, mild distress HEENT: Atraumatic, PERRLA Cardiovascular: Normal S1, Normal S2 Abdomen: Normal bowel sounds, Soft, No tenderness, No hepatospenomegaly Genitourinary: No Apparent Abnormalities (Walls catheter) Musculoskeletal: Normal sensory function, Normal motor function Skin: Dry, Intact Psych/Mental Status: Mental status NL, Mood NL Medications Current Medications Medications Dose Ordered Sig/Catia Route Start Time Stop Time Status Last Admin Dose Admin Ondansetron HCl 4 mg Q4HP PRN IV 03/14/25 12:45 03/15/25 05:59 4 MG Acetaminophen 650 mg Q6HP PRN PO 03/14/25 12:45 03/21/25 01:55 650 MG Nitroglycerin 0.4 mg Q5MINP PRN SL 03/14/25 12:45 Morphine Sulfate 2 mg Q30M PRN IV 03/14/25 12:45 Losartan Potassium 50 mg DAILY PO 03/15/25 10:00 03/21/25 09:04 50 MG Atorvastatin Calcium 20 mg HS PO 03/14/25 22:00 03/20/25 21:04 20 MG Albuterol 2.5 mg Q4HPRN PRN NEB 03/14/25 12:45 Cancel Ipratropium [place] 0.5 mg Q4HPRN PRN NEB 03/14/25 12:45 Cancel Ceftriaxone Sodium 50 ml @ 100 mls/hr DAILY@09 IV 03/14/25 12:45 03/21/25 09:03 100 MLS/HR Acetaminophen/ Hydrocodone Bitart 1 tab Q6HPRN PRN PO 03/14/25 14:00 03/20/25 17:33 1 TAB Morphine Sulfate 1 mg Q6HP PRN IV 03/14/25 14:00 03/21/25 09:09 1 MG Sodium Chloride 1,000 ml @ 75 mls/hr [id number] IV 03/16/25 14:30 03/21/25 01:10 75 MLS/HR Docusate Sodium 100 mg BID PO 03/16/25 22:00 03/21/25 09:03 100 MG Bisacodyl 10 mg DAILYP PRN [place] 03/16/25 14:30 03/19/25 04:06 10 MG Albuterol 2.5 mg Q6HWA NEB 03/19/25 18:00 03/21/25 07:14 2.5 MG Ipratropium [place] 0.5 mg Q6HWA NEB 03/19/25 18:00 03/21/25 07:14 0.5 MG Budesonide 0.5 mg BID NEB 03/19/25 22:00 03/21/25 07:15 0.5 MG Laboratory Results Laboratory Tests 03/19/25 07:22 Urinalysis Test 03/14/25 09:32 Urine Color Red (Yellow) H Urine Clarity Ex.turbid (Clear) Urine pH 5.5 (5.0-9.0) Urine Specific [place] 1.013 (1.001-1.035) Urine Protein 1+ (Negative) H Urine Ketones Negative (Negative) Urine Blood 3+ /uL (Negative) H Urine Nitrite Negative (Negative) Urine Bilirubin Negative (Negative) Urine Urobilinogen Normal mg/dL (Negative) Urine Leukocyte Esterase 3+ /uL (Negative) Urine RBC 6219 /hpf (0 - 3) Urine Microscopic WBC 827 /HPF (0-3) H Urine Squamous Epithelial Cells None seen /hpf (<5) Urine Bacteria None seen /hpf (None Seen) Urine Mucus Few (None Seen) Urine Glucose Normal mg/dL (Normal) Microbiology Microbiology Date/Time Source Procedure Growth Status 03/14/25 18:00 Nose MRSA Screen - Final Complete 03/14/25 09:32 Urine - [place] Urine Culture - Final Complete Assessment/Plan Assessment/Plan -bladder cancer -obstructive uropathy, probably secondary to bladder tumor -obesity -COPD -hypertension -complicated cystitis -hematuria -constipation acute hypoxic resp failure Plan: Events: NO HEMATURIA NOTED WITH CBI. PATIENT ON NASAL CANNULA AT 1 L/MIN. START BRONCHODILATORS, PULMICORT, INCENTIVE SPIROMETER -bowel regimen: To be bowel regimen. Patient evacuate his bowels yesterday -continue antibiotic therapy -urology consultation: Further course of care per recommendations -pain management -hold anticoagulation, recommend SCDs for DVT prophylaxis 03/20/2025 pt is pending home O2 discussed with pt at bedside Total time spent with patient discussing and formulating plan of care: 35 minutes. Plan discussed with: Patient Date of Service: Mar 20, 2025 Billing Provider: ANTOLIN PARMAR DO Common Visit Codes: [id number] INP/OBS CARE(HIGH) ANTOLIN PARMAR DO Mar 21, 2025 11:57
[2025-03-22] VITALS (11 sets, daily range): BP systolic 129–164; BP diastolic 68–83; PULSE 69–79; RESP 16–18; TEMP 98–98.2; O2SAT 95–100
--- NOTE | 2025-03-22 11:45 | DVHPN2 ---
Reviewed: Care Plan, H&P, Labs, Medications, Previous Orders Changes from previous H/P or p: No Changes General: Per HPI Gastrointestinal: Abdominal Pain Genitourinary: Hematuria Objective Vitals Vital Signs Date Time Temp Pulse Resp B/P (MAP) Pulse Ox O2 Delivery O2 Flow Rate FiO2 03/22/25 09:24 78 18 164/80 03/22/25 08:30 98.1 96 98.1 03/22/25 07:08 Nasal Cannula 2.0 03/22/25 07:08 28 Intake/Output Intake and Output 03/22/25 07:00 Intake Total 1700 ml Balance 1700 ml Intake Oral 975 ml IV Total 725 ml # Voids 4 General Appearance: Alert, Oriented X3, Cooperative, mild distress HEENT: Atraumatic, PERRLA Cardiovascular: Normal S1, Normal S2 Abdomen: Normal bowel sounds, Soft, No tenderness, No hepatospenomegaly Genitourinary: No Apparent Abnormalities (Walls catheter) Musculoskeletal: Normal sensory function, Normal motor function Skin: Dry, Intact Psych/Mental Status: Mental status NL, Mood NL Medications Current Medications Medications Dose Ordered Sig/Catia Route Start Time Stop Time Status Last Admin Dose Admin Ondansetron HCl 4 mg Q4HP PRN IV 03/14/25 12:45 03/15/25 05:59 4 MG Acetaminophen 650 mg Q6HP PRN PO 03/14/25 12:45 03/21/25 01:55 650 MG Nitroglycerin 0.4 mg Q5MINP PRN SL 03/14/25 12:45 Morphine Sulfate 2 mg Q30M PRN IV 03/14/25 12:45 Losartan Potassium 50 mg DAILY PO 03/15/25 10:00 03/22/25 09:23 50 MG Atorvastatin Calcium 20 mg HS PO 03/14/25 22:00 03/21/25 21:28 20 MG Albuterol 2.5 mg Q4HPRN PRN NEB 03/14/25 12:45 Cancel Ipratropium [place] 0.5 mg Q4HPRN PRN NEB 03/14/25 12:45 Cancel Ceftriaxone Sodium 50 ml @ 100 mls/hr DAILY@09 IV 03/14/25 12:45 03/22/25 09:23 100 MLS/HR Acetaminophen/ Hydrocodone Bitart 1 tab Q6HPRN PRN PO 03/14/25 14:00 03/21/25 21:32 1 TAB Morphine Sulfate 1 mg Q6HP PRN IV 03/14/25 14:00 03/22/25 09:24 1 MG Sodium Chloride 1,000 ml @ 75 mls/hr [id number] IV 03/16/25 14:30 03/22/25 03:50 75 MLS/HR Docusate Sodium 100 mg BID PO 03/16/25 22:00 03/22/25 09:23 100 MG Bisacodyl 10 mg DAILYP PRN [place] 03/16/25 14:30 03/21/25 16:18 10 MG Albuterol 2.5 mg Q6HWA NEB 03/19/25 18:00 03/22/25 07:11 2.5 MG Ipratropium [place] 0.5 mg Q6HWA NEB 03/19/25 18:00 03/22/25 07:11 0.5 MG Budesonide 0.5 mg BID NEB 03/19/25 22:00 03/22/25 07:12 0.5 MG Laboratory Results Laboratory Tests 03/19/25 07:22 Urinalysis Test 03/14/25 09:32 Urine Color Red (Yellow) H Urine Clarity Ex.turbid (Clear) Urine pH 5.5 (5.0-9.0) Urine Specific [place] 1.013 (1.001-1.035) Urine Protein 1+ (Negative) H Urine Ketones Negative (Negative) Urine Blood 3+ /uL (Negative) H Urine Nitrite Negative (Negative) Urine Bilirubin Negative (Negative) Urine Urobilinogen Normal mg/dL (Negative) Urine Leukocyte Esterase 3+ /uL (Negative) Urine RBC 6219 /hpf (0 - 3) Urine Microscopic WBC 827 /HPF (0-3) H Urine Squamous Epithelial Cells None seen /hpf (<5) Urine Bacteria None seen /hpf (None Seen) Urine Mucus Few (None Seen) Urine Glucose Normal mg/dL (Normal) Microbiology Microbiology Date/Time Source Procedure Growth Status 03/14/25 18:00 Nose MRSA Screen - Final Complete 03/14/25 09:32 Urine - [place] Urine Culture - Final Complete Labs and/or images reviewed: Labs reviewed by me, Image(s) reviewed by me Assessment/Plan Assessment/Plan -bladder cancer -obstructive uropathy, probably secondary to bladder tumor -obesity -COPD -hypertension -complicated cystitis -hematuria -constipation acute hypoxic resp failure Plan: Events: NO HEMATURIA NOTED WITH CBI. PATIENT ON NASAL CANNULA AT 1 L/MIN. START BRONCHODILATORS, PULMICORT, INCENTIVE SPIROMETER -bowel regimen: To be bowel regimen. Patient evacuate his bowels yesterday -continue antibiotic therapy -urology consultation: Further course of care per recommendations -pain management -hold anticoagulation, recommend SCDs for DVT prophylaxis 03/20/2025 pt is pending home O2 discussed with pt at bedside 03/21/2025 pending home O2, discussed with family and pt's family at bedside Total time spent with patient discussing and formulating plan of care: >35 minutes. Plan discussed with: Patient Date of Service: Mar 22, 2025 Billing Provider: ANTOLIN PARMAR DO Common Visit Codes: [id number] INP/OBS CARE(HIGH) ANTOLIN PARMAR DO Mar 22, 2025 11:45
[2025-03-22] MEDS ORDERED: CEPH250C PO (11:46)
--- NOTE | 2025-03-22 11:48 | DVHDS2 ---
Discharge Summary Date of Admission Mar 14, 2025 at 12:37 Date of Discharge: Mar 20, 2025 Labs/Diagnostic Data: Laboratory Results Test 03/20/25 08:55 03/19/25 07:22 03/16/25 06:51 03/15/25 06:58 Blood Gas Specimen Type Arterial Blood Gas Sample Site Left brachial Blood Gas Patient Temperature 37.0 Arterial Blood Date Drawn [id number] Arterial Blood pH 7.470 (7.350-7.450) Arterial Blood Partial Pressure CO2 39.1 mmHg (35.0-48.0) Arterial Blood Partial Pressure O2 53.3 mmHg (83.0-108.0) Arterial Blood HCO3 27.8 mmol/L (21.0-28.0) Arterial Blood Oxygen Saturation 86.4 % (94.0-98.0) Arterial Blood Base Excess 4.0 mmol/L (-2.0-3.0) Arterial Blood Oxyhemoglobin 85.5 % (94.0-98.0) Arterial Blood Carboxyhemoglobin 0.5 % (0.5-1.5) Arterial Blood Methemoglobin 0.5 % (0.0-1.5) [place] Test N/a Blood Gas Total Hemoglobin 11.80 g/dL (13.5-17.5) Blood Gas Modality Room air FiO2 % 21.0 Blood Gas Critical Value Read Back Yes Blood Gas Notified Whom lavell Treadwell np Blood Gas Notified Time [id number] Blood Gas Notified By Slipper Maker deng edwards White Blood Count 7.7 10^3/uL (4.4-10.8) Red Blood Count 4.26 10^6/uL (4.5-5.90) Hemoglobin 11.1 g/dL (13.5-17.5) Hematocrit 34.0 % (41.0-53.0) Mean Corpuscular Volume 79.9 fL (80.0-100.0) Mean Corpuscular Hemoglobin 26.1 pg (28.0-32.0) Mean Corpuscular Hemoglobin Concent 32.7 g/dL (32.0-36.0) Red Cell Distribution Width 15.1 % (11.8-14.3) Platelet Count 206 10^3/uL (140-450) Mean Platelet Volume 7.5 fL (6.9-10.8) Neutrophils (%) (Auto) 74.7 % (37.0-80.0) Lymphocytes (%) (Auto) 9.1 % (10.0-50.0) Monocytes (%) (Auto) 15.4 % (0.0-12.0) Eosinophils (%) (Auto) 0.7 % (0.0-7.0) Basophils (%) (Auto) 0.1 % (0.0-2.0) Neutrophils # (Auto) 5.8 10 ^3/uL (1.6-8.6) Lymphocytes # (Auto) 0.7 10 ^3/uL (0.4-5.4) Monocytes # (Auto) 1.2 10 ^3/uL (0-1.3) Eosinophils # (Auto) 0.1 10 ^3/uL (0-0.8) Basophils # (Auto) 0 10 ^3/uL (0-0.2) Nucleated Red Blood Cells 0.0 % Sodium Level 140 mmol/L (136-145) Potassium Level 4.2 mmol/L (3.5-5.1) Chloride Level 103 mmol/L (98-107) Carbon Dioxide Level 28 mmol/L (20-31) Anion Gap 9 (5-15) Blood Urea Nitrogen 18 mg/dL (9-23) Creatinine 0.98 mg/dL (0.700-1.30) Glomerular Filtration Rate Calc 83 mL/min (>90) BUN/Creatinine Ratio 18.4 (10.0-20.0) Serum Glucose 109 mg/dL (74-106) Calcium Level 9.7 mg/dL (8.7-10.4) Prothrombin Time 10.2 sec (9.3-11.8) Prothrombin Time INR 0.96 (0.9-1.15) Activated Partial Thromboplast Time 25.9 SEC (24.5-34.5) Total Bilirubin 0.4 mg/dL (0.2-1.0) Aspartate Amino Transferase (AST) 22 U/L (<34) Alanine Aminotransferase (ALT) 19 U/L (7-40) Alkaline Phosphatase 62 U/L (46-116) Total Protein 6.4 g/dL (5.7-8.2) Albumin 4.2 g/dL (3.2-4.8) Free Prostate Specific Antigen 0.22 ng/mL (N/A) Percent Free Prostate Specific Ag 27.5 % (.) Prostate Specific Antigen Total 0.8 ng/mL (0.0-4.0) Test 03/14/25 09:32 03/14/25 09:24 Urine Color Red (Yellow) Urine Clarity Ex.turbid (Clear) Urine pH 5.5 (5.0-9.0) Urine Specific [place] 1.013 (1.001-1.035) Urine Protein 1+ (Negative) Urine Ketones Negative (Negative) Urine Blood 3+ /uL (Negative) Urine Nitrite Negative (Negative) Urine Bilirubin Negative (Negative) Urine Urobilinogen Normal mg/dL (Negative) Urine Leukocyte Esterase 3+ /uL (Negative) Urine RBC 6219 /hpf (0 - 3) Urine Microscopic WBC 827 /HPF (0-3) Urine Squamous Epithelial Cells None seen /hpf (<5) Urine Bacteria None seen /hpf (None Seen) Urine Mucus Few (None Seen) Urine Glucose Normal mg/dL (Normal) Lipase 26 U/L (12-53) Other Laboratory Tests 03/19/25 07:22 Brief Hx & Hospital Course: bladder cancer -obstructive uropathy, probably secondary to bladder tumor -obesity -COPD -hypertension -complicated cystitis -hematuria -constipation acute hypoxic resp failure Plan: Events: NO HEMATURIA NOTED WITH CBI. PATIENT ON NASAL CANNULA AT 1 L/MIN. START BRONCHODILATORS, PULMICORT, INCENTIVE SPIROMETER -bowel regimen: To be bowel regimen. Patient evacuate his bowels yesterday -continue antibiotic therapy -urology consultation: Further course of care per recommendations -pain management -hold anticoagulation, recommend SCDs for DVT prophylaxis 03/20/2025 pt is pending home O2 discussed with pt at bedside 03/21/2025 pending home O2, discussed with family and pt's family at bedside 03/22/2025 home O2 is suppoed to be delivered today. per pt, his will bring it for home then pt can be discharged Total time spent with patient discussing and formulating plan of care: >35 minutes. Condition at Discharge: Stable Final Diagnosis/Problems List Hematuria secondary to bladder cancer Discharge Disposition: Home Discharge Instruct/Medications Diet: Cardiac 2g Na,low cholest Activity: No Restrictions, As Tolerated Follow Up/Referral: PCP Oncologist urologist Medications: Continue all home medications Discharge Statement: "Patient was advised to return to the ER or call 911 if any headaches, dizziness, shortness of breath, chest pain, abdominal pain, bleeding, fevers, or worsening of medical condition. Patient was counseled about treatment plan, medications, possible side effects, patientverbalized understanding. All questions were answered to the best of my ability. This discharge took greater then 30 minutes in planning, reviewing documentation, counseling the patient, and discussing with other team members." ASSESSMENT ASSESSMENT Assessment Hematuria secondary to bladder cancer Date of Service: Mar 22, 2025 Billing Provider: ANTOLIN PARMAR DO Common Visit Codes: [id number] DISCH DAY >30min ANTOLIN PARMAR DO Mar 22, 2025 11:48
--- NOTE | 2025-03-25 07:43 | ECG ---
[facility] Test Date: 2025-03-17 Test Time: 10:30:09 Pat Name: DIANA CISNEROS Department: Room: 0298 B Gender: M Tack Maker: : 1955 Requested By: DARRELL GUZMAN Order Number: [id number] Reading MD: Foreign Patel Measurements Intervals [place] Rate: 64 P: 90 CO: 156 QRS: 45 QRSD: 94 T: 55 QT: 400 QTc: 412 Interpretive Statements Normal sinus rhythm Electronically Signed On 03-28-2025 9:29:50 PDT by Foreign Patel Please click the below link to view image of tracing.
== END 2025-03-22 15:00 | disposition home or self-care (01) | DRG 668 ==
LOC: ER 08:37 → EDBD 08:37 → OVERFLOW 12:37 → WEST WING 17:26
PROVIDERS: ADMIT Internal Medicine; ATTEND Internal Medicine
PROC: 0JH60WZ Insertion of Totally Implantable Vascular Access Device into Chest Subcutaneous Tissue and Fascia, Open Approach (ICD-10-PCS; 2025-03-17)
PROC: 02HV33Z Insertion of Infusion Device into Superior Vena Cava, Percutaneous Approach (ICD-10-PCS; 2025-03-17)
PROC: B548ZZA Ultrasonography of Superior Vena Cava, Guidance (ICD-10-PCS; 2025-03-17)
PROC: 0TCC8ZZ Extirpation of Matter from Bladder Neck, Via Natural or Artificial Opening Endoscopic (ICD-10-PCS; 2025-03-18)
PROC: 0T5B8ZZ Destruction of Bladder, Via Natural or Artificial Opening Endoscopic (ICD-10-PCS; 2025-03-18)
PROC: 0TBB8ZZ Excision of Bladder, Via Natural or Artificial Opening Endoscopic (ICD-10-PCS; principal; 2025-03-18 12:45)
DX: C67.9 Malignant neoplasm of bladder, unspecified (principal); J96.01 Acute respiratory failure with hypoxia; J90 Pleural effusion, not elsewhere classified; R18.8 Other ascites; N13.6 Pyonephrosis; M87.852 Other osteonecrosis, left femur; M87.851 Other osteonecrosis, right femur; E66.9 Obesity, unspecified; J44.9 Chronic obstructive pulmonary disease, unspecified; K59.00 Constipation, unspecified; I10 Essential (primary) hypertension; Z88.0 Allergy status to penicillin; Z79.899 Other long term (current) drug therapy; Z68.30 Body mass index [BMI] 30.0-30.9, adult
CPT/HCPCS: 36415; 36556; 36600; 71275; 74176; 76775; 80048; 80053; 81001; 82247; 82805; 83690; 84075; 84154; 84450; 84460; 85025; 85610; 85730; 87081; 87086; 93005; 94640; 96374; 99152; A4344; C1894; G0378; J0330; J1100; J2250; J2405; J2704

== ENCOUNTER 2025-08-07 14:28 | Inpatient (IN) | payer BC, MEDICARE, OTHER ==
[~2025-08-07] VITALS: Ht 180.3 cm; Wt 95.1 kg
[2025-08-07 02:49] VITALS: BP 160/67; PULSE 84; RESP 18; TEMP 97.4; O2SAT 90
[~2025-08-07 14:28] MED LIST: CEPH250C PO; LOSA-534 PO; SIMV40TA18 PO
--- NOTE | 2025-08-07 15:40 | ED.PDOC ---
History of Present Illness HPI Comments HPI: Past Medical history: Past Surgical history: Medications: Social History: Denies smoking, ETOH, and drug use. Allergies: JETDA Darlene: HPI: Poor Historian. 70-year-old male to the ER by his PCP for abnormal labs obtained this morning. His platelets are 8. Contrary to triage notes, Patient denies any abdominal pain or any symptoms. Patient is not on blood thinners. Patient denies bleeding anywhere. Normal stool color. Patient had five rounds of chemotherapy most recently nine days ago. Past Medical History: Retention, prostate cancer chemotherapy Past Surgical History: Hernia repair, eye surgery, bladder prostate procedure, port placement REVIEW OF SYSTEMS: CONSTITUTIONAL: Denies acute: fever, diaphoresis, chills, generalized weakness. HEAD: Denies acute: headache, photophobia Eyes: Denies acute: Double vision, vision loss, eye pain, eye discharge. EARS: Denies acute: tinnitus, hearing loss, ear discharge, ear pain, THROAT: Denies acute: sore throat, swelling, difficulty swallowing , pain with swallowing, change in voice. NECK: Denies acute: neck pain, neck swelling, stiff neck. HEART: Denies acute : chest pain, palpitations, LUNGS: Denies acute: SOB, wheezing, cough, hemoptysis ABDOMEN: Denies acute: abdominal pain, Nausea, Vomiting, diarrhea, melena , hematemesis, hematochezia SKIN: Denies acute: rash, redness, lesions, itchiness. EXTREMITIES: Denies acute: calf pain, numbness, tingling, weakness, denies pain in extremity. Denies acute: Low back pain. Neuro: Denies acute: focal neurological deficit, motor or sensory focal neurological deficit, tremors, seizure like activity, confusion, dizziness, change in mental status, loss of bowel or bladder function, cauda equina like symptoms. : Denies acute: dysuria, hematuria, flank pain, increase in urinary frequency. PSYCH: Denies acute: hallucination, suicidal ideation, homicidal ideation. PHYSICAL EXAM: General: ----no----acute distress, awake and alert. Head: normocephalic, atraumatic. No raccoon's eyes, no reaves sign. Neck: supple, trachea is midline, no swelling. Throat: Normal phonation. No buccal mucosa petechiae noted. Eyes:, no erythema, no purulent discharge, no proptosis, no icterus. Heart: regular rate, regular rhythm, no significant murmur appreciated. Lungs: no apparent respiratory distress, Able to speak in full sentences. No wheezing, no rhonchi, no crackles. No stridors Clear to auscultation bilaterally. Abdomen: non tender to palpation, non distended, soft, no guarding, no rebound, + bowel sounds. Neuro: Awake, Alert, oriented to name, self, situation, follows commands GCS=15. Speech is normal. Skin: no petechia, no purpura, no cyanosis, slightly-pale, not jaundice. Lower extremities: --1/4 b/l - Pitting edema no deformity, no focal swelling, no calf TTP. Makes eye contact. moves all four extremities. Face: no apparent facial droop. Ambulating in the ED independently. ED COURSE: DISCLAIMER: This medical document was created using an electronic medical record system with voice recognition software and computerized dictation system. Although this document has been carefully reviewed, there might still be some phonetic and typographical errors. Occasional wrong-word or "sound-alike" substitutions may h ave occurred due to the inherent limitations of voice recognition software. These areas are purely typographical due to imperfections of the software programs and do not reflect any compromise in the patient's medical care. Please read the chart carefully and recognize, using context, where these substitutions have occurred. Chief Complaint: Abdominal Pain Time Seen by MD: 15:40 Reviewed Notes: Medications, Allergies Allergies: Coded Allergies: Penicillins (Verified Allergy, Unknown, 12/30/21) Salicylates (Verified Allergy, Unknown, 12/30/21) Home Meds Active Scripts Cephalexin (KEFLEX CAPSULE) 250 Mg Cp, 2 CAP PO BID for 5 Days, #20 CAP Prov:ANTOLIN PARMAR DO 03/22/25 Reported Medications Losartan Potassium (Losartan Potassium) 50 Mg Tab, 1 TAB PO DAILY 03/14/25 Simvastatin (Simvastatin) 40 Mg Tab, 1 TAB PO 03/14/25 Information Source: Patient Mode of Arrival: Ambulatory Was a procedure done? Was a procedure done?: No X-Ray, Labs, Meds, VS Vital Signs Date Time Temp Pulse Resp B/P (MAP) Pulse Ox O2 Delivery O2 Flow Rate FiO2 08/07/25 17:10 98.1 83 12 128/58 (81) 97 98.1 08/07/25 14:30 98.2 99 16 148/78 97 98.2 Lab Test 08/07/25 16:34 08/07/25 15:37 Range/Units White Blood Count 2.3 L 4.4-10.8 10^3/uL Red Blood Count 2.92 L 4.5-5.90 10^6/uL Hemoglobin 9.3 L 13.5-17.5 g/dL Hematocrit 26.9 L 41.0-53.0 % Mean Corpuscular Volume 92.1 80.0-100.0 fL Mean Corpuscular Hemoglobin 31.8 28.0-32.0 pg Mean Corpuscular Hemoglobin Concent 34.5 32.0-36.0 g/dL Red Cell Distribution Width 16.3 H 11.8-14.3 % Platelet Count 24 L 140-450 10^3/uL Mean Platelet Volume 8.0 6.9-10.8 fL Neutrophils (%) (Auto) 58.7 37.0-80.0 % Lymphocytes (%) (Auto) 31.8 10.0-50.0 % Monocytes (%) (Auto) 8.6 0.0-12.0 % Eosinophils (%) (Auto) 0.6 0.0-7.0 % Basophils (%) (Auto) 0.3 0.0-2.0 % Neutrophils # (Auto) 1.3 L 1.6-8.6 10 ^3/uL Lymphocytes # (Auto) 0.7 0.4-5.4 10 ^3/uL Monocytes # (Auto) 0.2 0-1.3 10 ^3/uL Eosinophils # (Auto) 0 0-0.8 10 ^3/uL Basophils # (Auto) 0 0-0.2 10 ^3/uL Nucleated Red Blood Cells 0.1 % Platelet Estimate Decreased Large Platelets Few Sodium Level 141 136-145 mmol/L Potassium Level 3.8 3.5-5.1 mmol/L Chloride Level 104 98-107 mmol/L Carbon Dioxide Level 26 20-31 mmol/L Anion Gap 11 5-15 Blood Urea Nitrogen 22 9-23 mg/dL Creatinine 1.14 0.700-1.30 mg/dL Glomerular Filtration Rate Calc 69 >90 mL/min BUN/Creatinine Ratio 19.3 10.0-20.0 Serum Glucose 99 74-106 mg/dL Calcium Level 9.5 8.7-10.4 mg/dL Total Bilirubin 0.2 0.2-1.0 mg/dL Aspartate Amino Transferase (AST) 17 13-40 U/L Alanine Aminotransferase (ALT) 25 7-40 U/L Alkaline Phosphatase 83 46-116 U/L Total Protein 7.1 5.7-8.2 g/dL Albumin 4.5 3.2-4.8 g/dL Reevaluation 1ST: Unchanged Patient Education/Counseling: Diagnosis, Treatment Departure 1 Departure Time of Disposition: 16:47 Impression: Primary Impression: Thrombocytopenia Additional Impression: Pancytopenia Disposition: ADMITTED INPATIENT Admit to: [facility] Condition: Guarded Discharged With: Self Critical Care Note Critical Care Time?: No I personally scribed for HUMAIRA FRAZIER DO ([email or web address]) on 08/07/25 at 15:40. Electronically submitted by Kareem Li ([email or web address]). HUMAIRA FRAZIER DO Aug 07, 2025 15:40
[2025-08-07 16:06] LABS: Alanine Aminotransferase 25 U/L (7-40); Albumin 4.5 g/dL (3.2-4.8); Alkaline Phosphatase 83 U/L (46-116); Anion Gap 11 (5-15); BUN/Creatinine Ratio 19.3 (10.0-20.0); Blood Urea Nitrogen 22 mg/dL (9-23); Calcium 9.5 mg/dL (8.7-10.4); Carbon Dioxide 26 mmol/L (20-31); Chloride 104 mmol/L (98-107); Glucose 99 mg/dL (74-106); Potassium 3.8 mmol/L (3.5-5.1); Sodium 141 mmol/L (136-145); Total Protein 7.1 g/dL (5.7-8.2)
[2025-08-07 16:10] LABS: Bilirubin, Total 0.2 mg/dL (0.2-1.0)
[2025-08-07 16:52] LABS: Hematocrit 26.9 % (41.0-53.0); Hemoglobin 9.3 g/dL (13.5-17.5); Mean Corpuscular Volume 92.1 fL (80.0-100.0); Nucleated Red Blood Cells % 0.1 %
[2025-08-07 16:54] LABS: Mean Corpuscular Hemoglobin 31.8 pg (28.0-32.0)
[2025-08-07] MEDS ORDERED: MORPHINE SULFATE INJ 2 MG/ml SYRG IV PRN ×2 (18:45)
[2025-08-07] MEDS ORDERED: NITROGLYCERIN 0.4 MG SL TAB SL PRN (18:45)
[2025-08-07] MEDS: SODIUM CHLORIDE 0.9% 1,000 ML IV SCH (18:45)
[2025-08-07] MEDS ORDERED: ONDANSETRON HCL 4 MG/2 ML VIAL IV PRN (18:45)
[2025-08-07] MEDS ORDERED: DOCUSATE SOD 100 MG CAP PO PRN (18:45)
[2025-08-07 19:48] LABS: INR 0.96 (0.9-1.15); Prothrombin Time 10.2 sec (9.3-11.8)
[2025-08-07 19:50] LABS: Fibrinogen 441.0 mg/dL (177-375)
[2025-08-07 20:34] VITALS: PULSE 81; RESP 18; O2SAT 90
[2025-08-07 21:00] VITALS: BP 164/77; PULSE 86; RESP 16; TEMP 97.7; O2SAT 96
--- NOTE | 2025-08-07 21:16 | DVHHPRES ---
History of Present Illness Resident Creating Document: DEMETRIO CHAPA RESIDENT History of Present Illness DIANA CISNEROS, a 70-year-old male was sent to the ER by his PCP for abnormal labs showing severe thrombocytopenia (platelets 8). The patient denies abdominal pain, bleeding, hematuria or other symptoms and reports normal stool color. He is not on anticoagulants or on antipletlets or NSAIDS. with past medical history includes prostate cancer currently on chemotherapy (last cycle nine days ago, [place], [place]) and urinary retention, hernia repair, eye surgery, bladder/prostate procedure, and port placement. Clinical impression includes thrombocytopenia and pancytopenia but patient otherwise hemodynamically stable. Prior visit in February 2025 with gross hematuria was evaluated by Urology Dr. Long. Past Medical History: Urinary Retention, prostate cancer chemotherapy, chronic low back pain on steroid Past Surgical History: Hernia repair, eye surgery, TURBT, port placement, Bladder scrapes, bilateral leg stents in 2020 at [facility], and left eye foreign body removal Social History: Prior smoker. Denies active smoking, ETOH, and drug use. Lives at home with family. Family history: non contributory Review of Systems Constitutional: No: Fever, Chills, Sweats, Weakness, Malaise, Other Eyes: No: Pain, Vision change, Conjunctivae inflammation, Eyelid inflammation, Other, Redness ENT: No: Ear pain, Ear discharge, Nose pain, Nose discharge, Nose congestion, Mouth pain, Mouth swelling, Throat pain, Throat swelling, Other Respiratory: No: Cough, Dry, Shortness of breath, SOB with excertion, Wheezing, Hemoptysis, Pleuritic Pain, Sputum, Wheezing, Other Cardiovascular: No: Chest Pain, Palpitations, Orthopnea, Paroxysmal Noc. Dyspnea, Edema, Lt Headedness, Other Gastrointestinal: No: Nausea, Vomiting, Abdominal Pain, Diarrhea, Constipation, Melena, Hematochezia, Other Genitourinary: No Dysuria, No Frequency, No Incontinence, No Hematuria, No Retention, No Other Musculoskeletal: back pain; No: other, neck pain, shoulder pain, arm pain, hand pain, leg pain, foot pain Skin: No: Rash, Lesions, Jaundice, Bruising, Other Neurological: No: Weakness, Numbness, Incoordination, Change in speech, Confusion, Seizures, Other Allergies: Coded Allergies: Penicillins (Verified Allergy, Unknown, 12/30/21) Salicylates (Verified Allergy, Unknown, 12/30/21) Medications Current Medications Medications Dose Ordered Sig/Catia Route Start Time Stop Time Status Last Admin Dose Admin Sodium Chloride 1,000 ml @ 120 mls/hr Q8H20M IV 08/07/25 18:45 Ondansetron HCl 4 mg Q4HP PRN IV 08/07/25 18:45 Docusate Sodium 100 mg BIDPRN PRN PO 08/07/25 18:45 Morphine Sulfate 2 mg Q4HPRN PRN IV 08/07/25 18:45 Nitroglycerin 0.4 mg Q5MINP PRN SL 08/07/25 18:45 Morphine Sulfate 2 mg Q30M PRN IV 08/07/25 18:45 Famotidine 20 mg BID IV 08/07/25 22:00 Enteral Nutritional Formula 240 ml TIDWM PO 08/08/25 08:00 Exam Vital Signs Vital Signs Date Time Temp Pulse Resp B/P (MAP) Pulse Ox O2 Delivery O2 Flow Rate FiO2 08/07/25 20:31 Room Air* 0 21 08/07/25 19:30 97.7 80 16 164/77 (106) 95 97.7 General Appearance: Alert, Oriented X3, Cooperative, No acute distress HEENT: Atraumatic, PERRLA, EOMI, Mucous membr. moist/pink, Other (b/l pallor ) Respiratory: Clear to auscultation, Normal air movement, Other (on room air. ) Cardiovascular: Regular rate, Normal S1, Normal S2, No murmurs Abdominal: Normal bowel sounds, Soft, No tenderness, No hepatospenomegaly, No masses Extremities: No clubbing, No cyanosis, No edema, Normal pulses, No tenderness/swelling Skin: No rashes, No breakdown, No significant lesion (most importantly no mucosal bleeding or purpura) Neuro: Normal gait, Normal speech, Strength at 5/5 X4 ext, Normal tone, Sensation intact, Cranial nerves 3-12 NL, Reflexes 2+ Psych/Mental Status: Mental status NL, Mood NL, Other (AAOx4) Labs/Xrays Labs Test 08/07/25 20:10 08/07/25 18:58 08/07/25 16:34 08/07/25 15:37 Range/Units Prothrombin Time 10.2 9.3-11.8 sec Prothrombin Time INR 0.96 0.9-1.15 Fibrinogen 441 H 177-375 mg/dL Lactic Acid Level 1.0 0.4-2.0 mmol/L Uric Acid 5.5 3.7-9.2 mg/dL Lactate Dehydrogenase 196 120-246 U/L Vitamin B12 Level 398 211-911 pg/mL Folic Acid 14.32 >5.38 ng/mL White Blood Count 2.3 L 4.4-10.8 10^3/uL Red Blood Count 2.92 L 4.5-5.90 10^6/uL Hemoglobin 9.3 L 13.5-17.5 g/dL Hematocrit 26.9 L 41.0-53.0 % Mean Corpuscular Volume 92.1 80.0-100.0 fL Mean Corpuscular Hemoglobin 31.8 28.0-32.0 pg Mean Corpuscular Hemoglobin Concent 34.5 32.0-36.0 g/dL Red Cell Distribution Width 16.3 H 11.8-14.3 % Platelet Count 24 L 140-450 10^3/uL Mean Platelet Volume 8.0 6.9-10.8 fL Neutrophils (%) (Auto) 58.7 37.0-80.0 % Lymphocytes (%) (Auto) 31.8 10.0-50.0 % Monocytes (%) (Auto) 8.6 0.0-12.0 % Eosinophils (%) (Auto) 0.6 0.0-7.0 % Basophils (%) (Auto) 0.3 0.0-2.0 % Neutrophils # (Auto) 1.3 L 1.6-8.6 10 ^3/uL Lymphocytes # (Auto) 0.7 0.4-5.4 10 ^3/uL Monocytes # (Auto) 0.2 0-1.3 10 ^3/uL Eosinophils # (Auto) 0 0-0.8 10 ^3/uL Basophils # (Auto) 0 0-0.2 10 ^3/uL Nucleated Red Blood Cells 0.1 % Platelet Estimate Decreased Large Platelets Few Reticulocyte Count (auto) 0.29 L 0.5-1.5 % Sodium Level 141 136-145 mmol/L Potassium Level 3.8 3.5-5.1 mmol/L Chloride Level 104 98-107 mmol/L Carbon Dioxide Level 26 20-31 mmol/L Anion Gap 11 5-15 Blood Urea Nitrogen 22 9-23 mg/dL Creatinine 1.14 0.700-1.30 mg/dL Glomerular Filtration Rate Calc 69 >90 mL/min BUN/Creatinine Ratio 19.3 10.0-20.0 Serum Glucose 99 74-106 mg/dL Calcium Level 9.5 8.7-10.4 mg/dL Total Bilirubin 0.2 0.2-1.0 mg/dL Aspartate Amino Transferase (AST) 17 13-40 U/L Alanine Aminotransferase (ALT) 25 7-40 U/L Alkaline Phosphatase 83 46-116 U/L Total Protein 7.1 5.7-8.2 g/dL Albumin 4.5 3.2-4.8 g/dL SEPSIS Sepsis Screen Date sepsis recognized/suspect: Aug 07, 2025 Time Sepsis recognized/suspect: 1432 Recent Procedure: No On Antibiotic Therapy: No Respiratory Rate >20: No Heart Rate >90: Yes Temp<36 C (96.8 F) or >38.3 C: No SBP <90 or MAP <65 mmHG: No New Acute Mental Status Change: No Is the patient on CPAP, BIPAP,: No Physician Orders Land Classifier (08/07/25 ) Admit (08/07/25 18:39) Allergies (08/07/25 18:39) Code Status (08/07/25 18:39) Sodium Chloride 0.9% (08/07/25 18:45) Oxygen Per Hour (08/07/25 18:39) Ondansetron Hcl (Zofran) (08/07/25 18:45) Docusate Sodium Capsule (Colace Capsule) (08/07/25 18:45) Fall Risk Precautions In Place QSHIFT (08/07/25 18:39) Complete Blood Count (08/08/25 04:00) Comprehensive Metabolic Panel (08/08/25 04:00) Pt Request For Service (08/07/25 18:39) Echo 2d Mode Cardiac Dop (08/07/25 18:39) Condition: Critical (08/07/25 18:39) Clear Liq Diet (08/08/25 Breakfast) Bedrest With Bathroom Privileg (08/07/25 18:39) Morphine Sulfate Injection (08/07/25 18:45) Sequential Compression Device (08/07/25 ) Nitroglycerin Sublingual (Ntrostat Subli (08/07/25 18:45) Morphine Sulfate Injection (08/07/25 18:45) Oxygen By Nasal Cannula (08/07/25 18:39) Stat Ekg For Chest Pain (08/07/25 18:39) Notify Of Changes From Base (08/07/25 18:39) Virtual Customer Assistant For 24 Hours (08/07/25 18:39) Emergency Dysrhythmia Protocol (08/07/25 18:39) Rhythm Strips Once Every Shift (08/07/25 18:39) [place]den Stain Slide (08/08/25 04:00) Covid19 Antigen Lana (08/07/25 ) Rapid Influenza A&B (08/07/25 18:42) Famotidine Injection (Pepcid Injection) (08/07/25 22:00) Fall Precautions Initiated (08/07/25 18:42) Fall Risk Precautions In Place QSHIFT (08/07/25 18:42) Precautions: Neutropenic (08/07/25 18:42) Urinalysis (08/07/25 18:46) Haptoglobin (08/07/25 18:46) Hiv 1&2 Antibody (08/07/25 19:29) Hepatitis C Antibody (08/07/25 19:29) Blood Culture (08/07/25 19:39) Urine Bacterial Culture (08/07/25 19:39) Respiratory Culture W/ Gs (08/07/25 19:39) Nutritional Supplements (Ensure High Pro (08/08/25 08:00) Vital Signs Date Time Temp Pulse Resp B/P (MAP) Pulse Ox O2 Delivery O2 Flow Rate FiO2 08/07/25 20:31 Room Air* 0 21 08/07/25 19:30 97.7 80 16 164/77 (106) 95 97.7 08/07/25 17:10 98.1 83 12 128/58 (81) 97 98.1 08/07/25 14:30 98.2 99 16 148/78 97 98.2 Laboratory Tests Test 08/07/25 16:34 08/07/25 18:58 White Blood Count 2.3 10^3/uL (4.4-10.8) L Lactic Acid Level 1.0 mmol/L (0.4-2.0) Assessment/Plan Assessment/Plan #Acute pancytopenia: likely due to chemotherapy, denies, bleeding, sick contact, fever or injury. yet to start radiotherapy. #Severe thrombocytopenia: 8K outside 24K without bleeding, avoid NSAID, antiplatelets and anticoagulants. Transfuse in case of active bleeding with <10k pletlets or <50k with procedure. #Acute bone marrow failure: noted by reticulocyte lower count, will rule out infection and secondary causes, if not recovering will consider Filgrastim sc. Follow cbc with differential. Rule out HCV, HIV and common viral panel. #Neutropenia: precautions, ANC 1300, blood, urine culture, and cxr to check. if not recovered consider GMCSF. to rule out B12 and Folate. #hypertension, uncontrolled: target 140/80 or below, amlodipine 5 mg daily. cardiac diet. #Ruled out DIC: peripheral smear to check, labs are unremarkable, hemodynamically stable. #Ruled out tumor lysis syndrome: calcium, uric acid, lactate and clinical picture satisfactory. #Retention, prostate cancer on chemotherapy:cycle 7, [place], last chemo 9 days ago. #chronic low back pain on steroid: avoid injections, high risk of hematoma. denies active pain, distal neurovascular functions intact. #Constipation: as needed docusate. High protein supplements. Clear liquid diet. #COPD, without exacerbation: no home oxygen at baseline: chest clear, as needed nebs. #Complicated surgical history of Hernia repair, eye surgery, TURBT, port placement, Bladder scrapes, bilateral leg stents in 2020 at [facility], and left eye foreign body removal. #Prior hisotory of smoking. #Osteoarthritis, chronic back pain, PT eval for safe discharge as high risk of bleeding/hematoma if fall occurs. fall precautions. #Allergic to penicillins and salicylates, avoidance strictly. PUD prophylaxis: famotidine, avoid PPI as can cause platelet dysfunction DVT prophylaxis: SCD/brisk movement only. Barriers to discharge: Medical diagnosis and management in progress. Lives at home with family and has transport and ADL means. PCP: Dr. Patino. Specialist Relevant To Admission: HematoOncologist, [place]. NO need to consult in hospital. Case discussed with Dr. Osorio. Code Status: Full Code. Discussion needed total 29 minutes bedside. Plan discussed with: Patient My Orders Orders - DEMETRIO CHAPA RESIDENT Procedure Category Date Status Time Admit ADMIT 08/07/25 Transmitted 18:39 Allergies QUIN 08/07/25 In Process 18:39 Code Status CODE 08/07/25 Transmitted 18:39 Sodium Chloride 0.9% PHA 08/07/25 In Process 18:45 Oxygen Per Hour RT 08/07/25 Transmitted 18:39 Ondansetron Hcl PHA 08/07/25 In Process (Zofran) 18:45 Docusate Sodium PHA 08/07/25 In Process Capsule (Colace 18:45 Fall Risk Precautions QUIN 08/07/[address] 18:39 Complete Blood Count LAB 08/08/25 Verified 04:00 Comprehensive LAB 08/08/25 Verified Metabolic Panel 04:00 Pt Request For Service PT 08/07/25 Logged 18:39 Echo 2d Mode Cardiac US 08/07/25 Logged DOP 18:39 Condition: Critical QUIN 08/07/25 In Process 18:39 Clear Liq Diet DIET 08/08/25 Transmitted Breakfast Bedrest With Bathroom QUIN 08/07/25 In Process Privileg 18:39 Morphine Sulfate PHA 08/07/25 In Process Injection 18:45 Sequential QUIN 08/07/25 In Process Compression Device Nitroglycerin PHA 08/07/25 In Process Sublingual (Ntrostat 18:45 Morphine Sulfate PHA 08/07/25 In Process Injection 18:45 Oxygen By Nasal RT 08/07/25 Transmitted Cannula 18:39 Stat Ekg For Chest QUIN 08/07/25 In Process Pain 18:39 Notify Of Changes QUIN 08/07/25 In Process From Base 18:39 Virtual Customer Assistant For [facility] 08/07/25 In Process 24 Hours 18:39 Emergency Dysrhythmia QUIN 08/07/25 In Process Protocol 18:39 Rhythm Strips Once QUIN 08/07/25 In Process Every Shift 18:39 Ogden Stain Slide LAB 08/08/25 Verified 04:00 Covid19 Antigen Lana LAB 08/07/25 Logged Rapid Influenza A&B LAB 08/07/25 Logged 18:42 Famotidine Injection PHA 08/07/25 In Process (Pepcid Injection) 22:00 Fall Precautions QUIN 08/07/25 In Process Initiated 18:42 Fall Risk Precautions QUIN 08/07/[address] 18:42 Precautions: QUIN 08/07/25 In Process Neutropenic 18:42 Urinalysis LAB 08/07/25 Logged 18:46 Haptoglobin LAB 08/07/25 In Process 18:46 Hiv 1&2 Antibody LAB 08/07/25 In Process 19:29 Hepatitis C Antibody LAB 08/07/25 In Process 19:29 Blood Culture URBANO 08/07/25 Logged 19:39 Urine Bacterial URBANO 08/07/25 Logged Culture 19:39 Respiratory Culture URBANO 08/07/25 Logged W/ Gs 19:39 Nutritional PHA 08/08/25 In Process Supplements (Ensure 08:00 Date of Service: Aug 07, 2025 Billing Provider: MADI OSORIO MD Common Visit Codes: [id number] INP/OBS CARE (HIGH) Secondary Visit Codes: [id number] CARE PLAN 30 MINUTES DEMETRIO CHAPA RESIDENT Aug 07, 2025 21:16
[2025-08-07] MEDS: FAMOTIDINE (10MG/ML) 2ML VL IV SCH (22:27)
[2025-08-07 23:04] VITALS: BP 160/67; PULSE 81; RESP 18; TEMP 97.4; O2SAT 90
[2025-08-08] VITALS (16 sets, daily range): BP systolic 93–160; BP diastolic 44–94; PULSE 58–89; RESP 16–18; TEMP 97.1–98.4; O2SAT 94–100
[2025-08-08] MEDS: LOSARTAN POTASSIUM 50 MG TAB PO ONE ×2 (03:44→16:18)
[2025-08-08 05:33] LABS: COVID19 ANTIGEN SOFIA FIA NEGATIVE (NEGATIVE)
[2025-08-08] MEDS: ALBUTEROL SULF 2.5 MG/0.5ML(0.5%) NEB SOLN NEB SCH (06:14)
[2025-08-08 07:33] LABS: Mean Corpuscular Volume 91.3 fL (80.0-100.0)
[2025-08-08 07:44] LABS: Hematocrit 25.4 % (41.0-53.0); Hemoglobin 8.9 g/dL (13.5-17.5); Mean Corpuscular Hemoglobin 31.9 pg (28.0-32.0); Nucleated Red Blood Cells % 0.3 %
[2025-08-08 07:53] LABS: Alanine Aminotransferase 21 U/L (7-40); Alkaline Phosphatase 76 U/L (46-116); Anion Gap 10 (5-15); BUN/Creatinine Ratio 17.8 (10.0-20.0); Blood Urea Nitrogen 19 mg/dL (9-23); Calcium 9.2 mg/dL (8.7-10.4); Carbon Dioxide 29 mmol/L (20-31); Chloride 103 mmol/L (98-107); Glucose 94 mg/dL (74-106); Potassium 4.0 mmol/L (3.5-5.1); Sodium 142 mmol/L (136-145); Total Protein 6.4 g/dL (5.7-8.2)
[2025-08-08 07:54] LABS: Albumin 4.0 g/dL (3.2-4.8); Bilirubin, Total 0.4 mg/dL (0.2-1.0)
[2025-08-08] MEDS: Ensure HIGH Protein Chocolate 8oz Bottle PO SCH (08:00)
[2025-08-08 09:49] LABS: Urine Protein, UAD Negative (Negative)
[2025-08-08] MEDS ORDERED: OMEP20TA PO (12:07)
[2025-08-08] MEDS ORDERED: ALBUAER3 IN (12:07)
[2025-08-08] MEDS ORDERED: FLUT250M2 IN (12:07)
[2025-08-08] MEDS ORDERED: HYDR-4902 PO (12:07)
--- NOTE | 2025-08-08 13:48 | DVHPN2 ---
Reviewed: Care Plan, H&P, Labs, Medications, Previous Orders, Radiology Changes from previous H/P or p: No Changes Eyes: No Pain, No Vision change, No Conjunctivae inflammation, No Eyelid inflammation, No Other, No Redness ENT: No Ear pain, No Ear discharge, No Nose pain, No Nose discharge, No Nose congestion, No Mouth pain, No Mouth swelling, No Throat pain, No Throat swelling, No Other Cardiovascular: No Chest Pain, No Palpitations, No Orthopnea, No Paroxysmal Noc. Dyspnea, No Edema, No Lt Headedness, No Other Respiratory: No Cough, No Dry, No Shortness of breath, No SOB with excertion, No Wheezing, No Hemoptysis, No Pleuritic Pain, No Sputum, No Other Gastrointestinal: No Nausea, No Vomiting, No Abdominal Pain, No Diarrhea, No Constipation, No Melena, No Hematochezia, No Other Genitourinary: No Dysuria, No Frequency, No Incontinence, No Hematuria, No Retention, No Other Musculoskeletal: No other, No neck pain, No shoulder pain, No arm pain; back pain; No hand pain, No leg pain, No foot pain Skin: No Rash, No Lesions, No Jaundice, No Bruising, No Other Objective Vitals Vital Signs Date Time Temp Pulse Resp B/P (MAP) Pulse Ox O2 Delivery O2 Flow Rate FiO2 08/08/25 12:22 58 18 100 08/08/25 10:00 Room Air* 0 21 08/08/25 09:00 97.4 141/66 (91) 97.4 Intake/Output Intake and Output 08/08/25 07:00 Intake Total 250 ml Output Total 150 ml Balance 100 ml Intake Oral 250 ml Output Urine Total 150 ml Medications Current Medications Medications Dose Ordered Sig/Catia Route Start Time Stop Time Status Last Admin Dose Admin Sodium Chloride 1,000 ml @ 120 mls/hr Q8H20M IV 08/07/25 18:45 08/07/25 18:45 120 MLS/HR Ondansetron HCl 4 mg Q4HP PRN IV 08/07/25 18:45 Docusate Sodium 100 mg BIDPRN PRN PO 08/07/25 18:45 Morphine Sulfate 2 mg Q4HPRN PRN IV 08/07/25 18:45 Nitroglycerin 0.4 mg Q5MINP PRN SL 08/07/25 18:45 Morphine Sulfate 2 mg Q30M PRN IV 08/07/25 18:45 Famotidine 20 mg BID IV 08/07/25 22:00 08/08/25 11:37 20 MG Enteral Nutritional Formula 240 ml TIDWM PO 08/08/25 08:00 08/08/25 12:02 240 ML Albuterol 2.5 mg Q6HWA NEB 08/08/25 06:00 08/08/25 12:16 2.5 MG Amlodipine Besylate 5 mg DAILY PO 08/08/25 10:00 Laboratory Results Laboratory Tests 08/08/25 04:43 Chemistry Test 08/07/25 15:37 08/08/25 04:43 Albumin 4.5 g/dL (3.2-4.8) 4.0 g/dL (3.2-4.8) Calcium Level 9.5 mg/dL (8.7-10.4) 9.2 mg/dL (8.7-10.4) Total Protein 7.1 g/dL (5.7-8.2) 6.4 g/dL (5.7-8.2) Coagulation Test 08/07/25 18:58 Prothrombin Time 10.2 sec (9.3-11.8) Prothrombin Time INR 0.96 (0.9-1.15) Fibrinogen 441 mg/dL (177-375) H LFT Test 08/07/25 15:37 08/08/25 04:43 Alanine Aminotransferase (ALT) 25 U/L (7-40) 21 U/L (7-40) Alkaline Phosphatase 83 U/L (46-116) 76 U/L (46-116) Aspartate Amino Transferase (AST) 17 U/L (13-40) 17 U/L (13-40) Total Bilirubin 0.2 mg/dL (0.2-1.0) 0.4 mg/dL (0.2-1.0) HgA1c, TSH Test 08/07/25 15:37 Thyroid Stimulating Hormone (TSH) 0.39 uIU/mL (0.55-4.78) L Urinalysis Test 08/07/25 09:00 Urine Color Light-yellow (Yellow) Urine Clarity Clear (Clear) Urine pH 6.0 (5.0-9.0) Urine Specific [place] 1.013 (1.001-1.035) Urine Protein Negative (Negative) Urine Ketones Negative (Negative) Urine Blood Negative /uL (Negative) Urine Nitrite Negative (Negative) Urine Bilirubin Negative (Negative) Urine Urobilinogen Normal mg/dL (Negative) Urine Leukocyte Esterase Trace /uL (Negative) Urine RBC 2 /hpf (0 - 3) Urine Microscopic WBC 6 /HPF (0-3) H Urine Squamous Epithelial Cells Few /hpf (<5) Urine Bacteria None seen /hpf (None Seen) Urine Glucose Normal mg/dL (Normal) Labs and/or images reviewed: Labs reviewed by me, Image(s) reviewed by me Assessment/Plan Assessment/Plan severe Thrombocytopenia platelets 21 K, transfuse 2 units of platelets Pancytopenia History of prostate cancer on chemo at [place] last chemo 2 back History of Prostate surgery Time Spent 50 minutes Advanced Care planning time 20 minutes Patient is full code Plan discussed with: Patient Date of Service: Aug 08, 2025 Billing Provider: LATA BADILLO MD Common Visit Codes: [id number] INP/OBS CARE(HIGH) Secondary Visit Codes: [id number] CARE PLAN 30 MINUTES LATA BADILLO MD Aug 08, 2025 13:48
[2025-08-09] VITALS (10 sets, daily range): BP systolic 105–123; BP diastolic 53–65; PULSE 68–82; RESP 14–19; TEMP 97.5–98.4; O2SAT 92–100
[2025-08-09 05:04] LABS: Hematocrit 26.4 % (41.0-53.0); Hemoglobin 9.2 g/dL (13.5-17.5)
[2025-08-09 05:06] LABS: Mean Corpuscular Hemoglobin 31.9 pg (28.0-32.0); Mean Corpuscular Volume 92.2 fL (80.0-100.0)
[2025-08-09 05:32] LABS: Alanine Aminotransferase 20 U/L (7-40); Albumin 4.1 g/dL (3.2-4.8); Alkaline Phosphatase 76 U/L (46-116); Anion Gap 10 (5-15); BUN/Creatinine Ratio 15.7 (10.0-20.0); Blood Urea Nitrogen 18 mg/dL (9-23); Calcium 9.6 mg/dL (8.7-10.4); Carbon Dioxide 29 mmol/L (20-31); Chloride 102 mmol/L (98-107); Glucose 103 mg/dL (74-106); Potassium 4.1 mmol/L (3.5-5.1); Sodium 141 mmol/L (136-145); Total Protein 6.4 g/dL (5.7-8.2)
[2025-08-09 05:33] LABS: Bilirubin, Total 0.3 mg/dL (0.2-1.0)
[2025-08-09 06:45] LABS: Total Cells Counted 100.0 (100)
--- NOTE | 2025-08-09 09:32 | DVHPN2 ---
Reviewed: Care Plan, H&P, Labs, Medications, Previous Orders, Radiology Changes from previous H/P or p: No Changes Eyes: No Pain, No Vision change, No Conjunctivae inflammation, No Eyelid inflammation, No Other, No Redness ENT: No Ear pain, No Ear discharge, No Nose pain, No Nose discharge, No Nose congestion, No Mouth pain, No Mouth swelling, No Throat pain, No Throat swelling, No Other Cardiovascular: No Chest Pain, No Palpitations, No Orthopnea, No Paroxysmal Noc. Dyspnea, No Edema, No Lt Headedness, No Other Respiratory: No Cough, No Dry, No Shortness of breath, No SOB with excertion, No Wheezing, No Hemoptysis, No Pleuritic Pain, No Sputum, No Other Gastrointestinal: No Nausea, No Vomiting, No Abdominal Pain, No Diarrhea, No Constipation, No Melena, No Hematochezia, No Other Genitourinary: No Dysuria, No Frequency, No Incontinence, No Hematuria, No Retention, No Other Musculoskeletal: No other, No neck pain, No shoulder pain, No arm pain; back pain; No hand pain, No leg pain, No foot pain Skin: No Rash, No Lesions, No Jaundice, No Bruising, No Other Objective Vitals Vital Signs Date Time Temp Pulse Resp B/P (MAP) Pulse Ox O2 Delivery O2 Flow Rate FiO2 08/09/25 08:51 97.5 69 19 116/65 (82) 93 97.5 08/09/25 08:00 Room Air* 0 21 Intake/Output Intake and Output 08/09/25 07:00 Intake Total 1964 ml Balance 1964 ml Intake Oral 1440 ml Blood Product 262 ml Other 262 ml # Voids 7 # Bowel Movements 3 Medications Current Medications Medications Dose Ordered Sig/Catia Route Start Time Stop Time Status Last Admin Dose Admin Sodium Chloride 1,000 ml @ 120 mls/hr Q8H20M IV 08/07/25 18:45 08/09/25 04:27 120 MLS/HR Ondansetron HCl 4 mg Q4HP PRN IV 08/07/25 18:45 Docusate Sodium 100 mg BIDPRN PRN PO 08/07/25 18:45 Morphine Sulfate 2 mg Q4HPRN PRN IV 08/07/25 18:45 Nitroglycerin 0.4 mg Q5MINP PRN SL 08/07/25 18:45 Morphine Sulfate 2 mg Q30M PRN IV 08/07/25 18:45 Famotidine 20 mg BID IV 08/07/25 22:00 08/09/25 08:55 20 MG Enteral Nutritional Formula 240 ml TIDWM PO 08/08/25 08:00 08/09/25 08:00 240 ML Albuterol 2.5 mg Q6HWA NEB 08/08/25 06:00 08/09/25 06:50 2.5 MG Losartan Potassium 50 mg DAILY PO 08/09/25 10:00 Laboratory Results Laboratory Tests 08/09/25 04:29 Chemistry Test 08/09/25 04:29 Albumin 4.1 g/dL (3.2-4.8) Calcium Level 9.6 mg/dL (8.7-10.4) Total Protein 6.4 g/dL (5.7-8.2) LFT Test 08/09/25 04:29 Alanine Aminotransferase (ALT) 20 U/L (7-40) Alkaline Phosphatase 76 U/L (46-116) Aspartate Amino Transferase (AST) 15 U/L (13-40) Total Bilirubin 0.3 mg/dL (0.2-1.0) Urinalysis Test 08/07/25 09:00 Urine Color Light-yellow (Yellow) Urine Clarity Clear (Clear) Urine pH 6.0 (5.0-9.0) Urine Specific [place] 1.013 (1.001-1.035) Urine Protein Negative (Negative) Urine Ketones Negative (Negative) Urine Blood Negative /uL (Negative) Urine Nitrite Negative (Negative) Urine Bilirubin Negative (Negative) Urine Urobilinogen Normal mg/dL (Negative) Urine Leukocyte Esterase Trace /uL (Negative) Urine RBC 2 /hpf (0 - 3) Urine Microscopic WBC 6 /HPF (0-3) H Urine Squamous Epithelial Cells Few /hpf (<5) Urine Bacteria None seen /hpf (None Seen) Urine Glucose Normal mg/dL (Normal) Microbiology Microbiology Date/Time Source Procedure Growth Status 08/07/25 21:44 Blood Blood Culture - Preliminary NO GROWTH AFTER 24 HOURS OF INCUBATION. Resulted Labs and/or images reviewed: Labs reviewed by me, Image(s) reviewed by me Assessment/Plan Assessment/Plan Severe thrombocytopenia platelets 21 K, improved to 27 K after 1 unit transfusion Pancytopenia History of bladder cancer on chemo at [place] last chemo 2 weeks back History of TURBT Time Spent 50 minutes Advanced Care planning time 20 minutes Patient is full code Patient requesting to be discharged today Plan discussed with: Patient My Orders Orders - LATA BADILLO MD Procedure Category Date Status Time Losartan Tablet PHA 08/09/25 In Process (Cozaar Tablet) 10:00 Date of Service: Aug 09, 2025 Billing Provider: LATA BADILLO MD Common Visit Codes: [id number] INP/OBS CARE(HIGH) LATA BADILLO MD Aug 09, 2025 09:32
--- NOTE | 2025-08-09 09:37 | DVHDS2 ---
Discharge Summary Date of Admission Aug 07, 2025 at 18:39 Date of Discharge: Aug 09, 2025 Admitting Diagnosis Low platelets Wounds: None Labs/Diagnostic Data: Laboratory Results Test 08/09/25 04:29 08/08/25 04:43 08/08/25 04:10 08/07/25 20:10 White Blood Count 1.7 10^3/uL (4.4-10.8) Red Blood Count 2.87 10^6/uL (4.5-5.90) Hemoglobin 9.2 g/dL (13.5-17.5) Hematocrit 26.4 % (41.0-53.0) Mean Corpuscular Volume 92.2 fL (80.0-100.0) Mean Corpuscular Hemoglobin 31.9 pg (28.0-32.0) Mean Corpuscular Hemoglobin Concent 34.7 g/dL (32.0-36.0) Red Cell Distribution Width 16.3 % (11.8-14.3) Platelet Count 27 10^3/uL (140-450) Mean Platelet Volume 7.8 fL (6.9-10.8) Neutrophils (%) (Auto) % (37.0-80.0) Lymphocytes (%) (Auto) % (10.0-50.0) Monocytes (%) (Auto) % (0.0-12.0) Basophils (%) (Auto) % (0.0-2.0) Neutrophils # (Auto) 10 ^3/uL (1.6-8.6) Lymphocytes # (Auto) 10 ^3/uL (0.4-5.4) Monocytes # (Auto) 10 ^3/uL (0-1.3) Differential Total Cells Counted 100.0 (100) Neutrophils % (Manual) 50 (37.0-80.0) Band Neutrophils % (Manual) 0 Lymphocytes % (Manual) 39 (10.0-50.0) Monocytes % (Manual) 11 (0-12) Eosinophils % (Manual) 0 (0-7) Basophils % (Manual) 0 (0.0-2.0) Metamyelocytes % (manual) 0 Myelocytes % (Manual) 0 Promyelocytes % (Manual) 0 Blast Cells % (Manual) 0 Reactive Lymphocytes 0 Platelet Estimate Markedly decreased Sodium Level 141 mmol/L (136-145) Potassium Level 4.1 mmol/L (3.5-5.1) Chloride Level 102 mmol/L (98-107) Carbon Dioxide Level 29 mmol/L (20-31) Anion Gap 10 (5-15) Blood Urea Nitrogen 18 mg/dL (9-23) Creatinine 1.15 mg/dL (0.700-1.30) Glomerular Filtration Rate Calc 68 mL/min (>90) BUN/Creatinine Ratio 15.7 (10.0-20.0) Serum Glucose 103 mg/dL (74-106) Calcium Level 9.6 mg/dL (8.7-10.4) Total Bilirubin 0.3 mg/dL (0.2-1.0) Aspartate Amino Transferase (AST) 15 U/L (13-40) Alanine Aminotransferase (ALT) 20 U/L (7-40) Alkaline Phosphatase 76 U/L (46-116) Total Protein 6.4 g/dL (5.7-8.2) Albumin 4.1 g/dL (3.2-4.8) Eosinophils (%) (Auto) 0.7 % (0.0-7.0) Eosinophils # (Auto) 0 10 ^3/uL (0-0.8) Basophils # (Auto) 0 10 ^3/uL (0-0.2) Nucleated Red Blood Cells 0.3 % Influenza Type A Antigen Negative (Negative) Influenza Type B Antigen Negative (Negative) SARS-CoV-2 Antigen (Rapid) Negative (NEGATIVE) Hepatitis C Antibody Negative (Negative) HIV (1&2) Antibody Negative (Negative) Test 08/07/25 18:58 08/07/25 16:34 08/07/25 15:37 08/07/25 09:00 Haptoglobin 172 mg/dL (32-363) Prothrombin Time 10.2 sec (9.3-11.8) Prothrombin Time INR 0.96 (0.9-1.15) Fibrinogen 441 mg/dL (177-375) Lactic Acid Level 1.0 mmol/L (0.4-2.0) Uric Acid 5.5 mg/dL (3.7-9.2) Lactate Dehydrogenase 196 U/L (120-246) Vitamin B12 Level 398 pg/mL (211-911) Folic Acid 14.32 ng/mL (>5.38) Large Platelets Few Reticulocyte Count (auto) 0.29 % (0.5-1.5) Thyroid Stimulating Hormone (TSH) 0.39 uIU/mL (0.55-4.78) Urine Color Light-yellow (Yellow) Urine Clarity Clear (Clear) Urine pH 6.0 (5.0-9.0) Urine Specific [place] 1.013 (1.001-1.035) Urine Protein Negative (Negative) Urine Ketones Negative (Negative) Urine Blood Negative /uL (Negative) Urine Nitrite Negative (Negative) Urine Bilirubin Negative (Negative) Urine Urobilinogen Normal mg/dL (Negative) Urine Leukocyte Esterase Trace /uL (Negative) Urine RBC 2 /hpf (0 - 3) Urine Microscopic WBC 6 /HPF (0-3) Urine Squamous Epithelial Cells Few /hpf (<5) Urine Bacteria None seen /hpf (None Seen) Urine Glucose Normal mg/dL (Normal) Other Laboratory Tests 08/09/25 04:29 Brief Hx & Hospital Course: 70-year-old male with a history of bladder cancer on chemo at [facility] last chemo two weeks back, history of TURBT sent over by primary Dr as his platelets were very low 8k. In the ER platelet count was 21 k. denies any GI bleeding or bleeding anywhere else. Given 1 unit of platelet transfusion improved to 27 K. pancytopenia secondary to chemotherapy The patient feels slightly better and requesting to be discharged today.. Discharged today and he will keep his appointment with his oncologist at [facility] coming Monday Consults/Reason for consult None Operations or Procedures Platelet transfusion Condition at Discharge: Fair Final Diagnosis/Problems List Severe thrombocytopenia platelets 21 K, improved to 27 K after 1 unit transfusion Pancytopenia History of bladder cancer on chemo at [facility] last chemo 2 weeks back History of TURBT Discharge Disposition: Home Discharge Instruct/Medications Diet: Regular Activity: Light activity Follow Up/Referral: Keep your appointment with the oncologist at [facility] coming Monday Resume all previous home medications Medications: none Scheduled Cephalexin (Keflex Capsule), 2 CAP PO BID Fluticasone-Salmeterol (Advair Diskus 250/50), 1 PUFF IN DAILY, (Reported) Losartan Potassium (Losartan Potassium), 1 TAB PO DAILY, (Reported) Omeprazole (Gnp Omeprazole), 40 MG PO DAILY, (Reported) Scheduled PRN Albuterol Sulfate (Ventolin Mdi), 90 MCG IN for SHORTNESS OF BREATH, (Reported) Hydrocodone-Acetaminophen (Hydrocodone Bitartrate/AC 5-325 mg), 1 TAB PO for PAIN SCALE 1 THRU 6, (Reported) Miscellaneous Medications Simvastatin (Simvastatin), 1 TAB PO, (Reported) 39 (Time taken for discharge summary 39 minutes) Discharge Statement: "Patient was advised to return to the ER or call 911 if any headaches, dizziness, shortness of breath, chest pain, abdominal pain, bleeding, fevers, or worsening of medical condition. Patient was counseled about treatment plan, medications, possible side effects, patientverbalized understanding. All questions were answered to the best of my ability. This discharge took greater then 30 minutes in planning, reviewing documentation, counseling the patient, and discussing with other team members." ASSESSMENT ASSESSMENT Hospital Course Improved Assessment Severe thrombocytopenia platelets 21 K, improved to 27 K after 1 unit transfusion Pancytopenia History of bladder cancer on chemo at [facility] last chemo 2 weeks back History of TURBT Date of Service: Aug 09, 2025 Billing Provider: LATA BADILLO MD Common Visit Codes: 27159-YPC/OBS DISCH DAY >30min LATA BADILLO MD Aug 09, 2025 09:37
[2025-08-09] MEDS: LOSARTAN POTASSIUM 50 MG TAB PO SCH (10:00)
--- NOTE | 2025-08-09 13:54 | DVHSR ---
APPROVED REPORT EXAM: Two-dimensional and M-mode echocardiogram with Doppler and color Doppler. Blood Pressure: 144/94 mmHg INDICATION rule out structural heart disease Surgery/Intervention on chemo RISK FACTORS Obesity: Height: 5'11, Weight: 209 DIMENSIONS LVDd 5.1 (3.8-5.7cm) LA (2D) 4.2 (1.9-4.0cm) Aortic Root 3.3 (2.0-3.7cm) LVDs 3.4 (2.5-4.0cm) LA (MM) (1.9-4.0cm) Aortic Cusp Exc 1.6 (1.5-2.0cm) EF (%) 60.0 (55-70%) Rt. Atrium 3.9 (1.9-4.0cm) Asc. Aorta cm IVSd 0.8 (0.7-1.1cm) RV (D) 4.7 (1.8-2.4cm) PWd 1.0 (0.7-1.1cm) Mitral Valve Mitral Mitral Stenosis E wave 0.51m/s MV Mean GR. mmHg A wave 0.66m/s MV Peak GR. mmHg E/A ratio 0.8 2D MVA cm2 DECEL Time 197ms PRESS 1/2 Time ms Aortic Valve Aortic Valve Aortic Stenosis V1 0.92m/s AO Mean GR. 3mmHg V2 1.23m/s AO Peak GR. 6mmHg LVOT Diameter 2.5 (1.8-2.4cm) Doppler [place] 3.67cm2 Pulmonic Valve V2 1.09m/s Tricuspid Valve TR Velocity 2.16m/s RVSP 22mmHg Other Information Quality : Technically Limited Rhythm : Technically limited study due to body habitus. Conclusion LV EF IS 65% CALCIFIED AORTIC LEAFLETS AORTIC SCLEROSIS BUT NO STENOSIS NORMAL MV,TV AND PV NORMAL RV FUNCTION NO EFFUSION
== END 2025-08-09 11:05 | disposition home or self-care (01) | DRG 813 ==
LOC: ER 14:28 → OVERFLOW 18:39 → EAST 20:59
PROVIDERS: ADMIT Family Medicine; ATTEND Family Medicine
PROC: 30233R1 Transfusion of Nonautologous Platelets into Peripheral Vein, Percutaneous Approach (ICD-10-PCS; principal; 2025-08-08)
DX: D69.6 Thrombocytopenia, unspecified (principal); D61.810 Antineoplastic chemotherapy induced pancytopenia; D61.818 Other pancytopenia; D70.9 Neutropenia, unspecified; J44.9 Chronic obstructive pulmonary disease, unspecified; Z20.822 Contact with and (suspected) exposure to COVID-19; Z85.51 Personal history of malignant neoplasm of bladder; Z85.46 Personal history of malignant neoplasm of prostate
CPT/HCPCS: 36415; 80053; 81001; 82607; 82746; 83010; 83605; 83615; 84443; 84550; 85007; 85025; 85027; 85045; 85384; 85610; 86703; 86803; 86850; 86900; 86901; 87040; 87086; 87426; 87804; 93306; 94640; 96374; G0378; J3490